=== PATIENT | female | born 1955 | race Caucasian/White ===

== ENCOUNTER 2018-02-05 01:19 | Inpatient (IN) ==
--- NOTE | 2018-02-05 01:40 | Emergency Department Note ---
Disposition Clinical Impression: Transaminitis, Pancreatic mass, Pulmonary embolus, Leukocytosis Disposition: Admitted As Inpatient Condition: Fair Time of Disposition: 04:19 General Adult HPI - General Chief complaint: ED Abdominal Pain Stated complaint: LISETTE/LLQ pain Time Seen by Provider: 02/05/18 01:28 Source: patient Mode of arrival: ambulatory Limitations: no limitations Nursing Notes Reviewed: Yes Vital Signs Reviewed: Yes - History of Present Illness HPI Narrative: Patient is a 62-year-old female that presents the emergency department with left flank pain. Patient states that this back pain began today. Patient states that it radiates around into her left abdomen and up into her left shoulder. Patient states that she has never had anything like this before. Patient denies any injuries or falls. Patient states that she has a difficult time getting comfortable and is unable to lay down due to having significant pain. Patient denies any painful urination or blood in her urine. Patient denies any fevers or chills. Patient does state that she has been somewhat nauseated due to the pain. Patient denies any history of kidney stones. Pain Scale: 8 - Related Data Home Medications Medication Instructions Recorded Confirmed Lisinopril 05/09/17 Omeprazole 05/09/17 amLODIPine 05/09/17 Allergies Allergy/AdvReac Type Severity Reaction Status Date / Time Penicillins Allergy Rash Verified 05/09/17 10:10 Sulfa (Sulfonamide Allergy Rash Verified 05/09/17 10:10 Antibiotics) All systems ED: reviewed and negative except as stated. Constitutional: Denies: fever Cardiovascular: Denies: chest pain Respiratory: Reports: dyspnea Gastrointestinal: Reports: nausea. Denies: abdominal pain, vomiting, diarrhea Genitourinary: Denies: urgency, dysuria, frequency, hematuria Musculoskeletal: Reports: back pain Past Medical History - Past Medical History Medical history: Reports: hypertension - Social History Smoking Status: Never smoker Smokeless Tobacco Status: No Alcohol use: Reports: occasionally Physical Exam - General Limitations: no limitations General appearance: alert, in no apparent distress - Head Head exam: atraumatic, normocephalic - Eye Eye exam: Present: normal appearance, EOMI - Neck Neck exam: Present: normal inspection, full ROM, trachea midline - Respiratory Respiratory exam: Present: normal lung sounds bilaterally. Absent: respiratory distress, wheezes - Cardiovascular Cardiovascular exam: Present: regular rate, normal rhythm, normal heart sounds, +S1, +S2 - Abdominal Exam Abdominal exam: Present: soft, Non-Tender, normal bowel sounds - Back Exam Back exam: Present: normal inspection, full ROM, CVA tenderness (L). Absent: CVA tenderness (R) - Neurological Exam Neurological exam: Present: alert, oriented X3 - Psychiatric Psychiatric exam: Present: normal affect, normal mood - Skin Skin exam: Present: warm, dry, intact Course Vital Signs Temperature 98.1 F 02/05/18 01:24 Pulse Rate 115 02/05/18 01:24 Respiratory Rate 20 02/05/18 01:24 Blood Pressure 163/98 02/05/18 01:24 O2 Sat by Pulse Oximetry 98 02/05/18 01:24 Temperature 98.1 F 02/05/18 01:51 Pulse Rate 115 02/05/18 01:51 Respiratory Rate 20 02/05/18 01:51 Blood Pressure 163/98 02/05/18 01:51 O2 Sat by Pulse Oximetry 98 02/05/18 01:51 Oxygen Delivery Oxygen Delivery Room Air Medical Decision Making - MDM Narrative Medical decision making narrative: Due the patient presenting to the emergency department with left flank pain that radiates into her abdomen and the feeling of not being able to get comfortable there is concern for possible objective uropathy. We will obtain a urinalysis and a CT scan of the abdomen and pelvis to evaluate for possible kidney stone. Patient has denied any pain medications at this time. Patient's CT scan of the abdomen and pelvis was concerning for pancreatic cancer with metastasis. Due to the patient having likely malignancy and being tachycardic and reporting intermittent shortness of breath and the shortness of breath being somewhat pleuritic we will perform a CTA of the chest. We will also obtain basic laboratory testing at this time. Patient does have mildly elevated white count of 13.0. Patient does have a transaminitis with an elevated AST, ALT and alkaline phosphatase. Patient was found to have bilateral PEs on CTA of the chest. Patient will need anticoagulation and admitted to the hospital for further evaluation and management. Patient was informed of the findings of likely pancreatic cancer with metastasis and the fact that there were bilateral pulmonary embolus present patient was in agreement with being anticoagulated and admitted to the hospital for further evaluation and management. I called and sp satnam the admitting hospitalist and he is accepted the patient to their service. Patient be admitted to the hospital at this time for further evaluation and management. - Medical Records Medical records reviewed: Yes I reviewed the patient's medical records. - Lab Data Lab results reviewed: Yes I reviewed the patient's lab results. Result diagrams: 02/05/18 02:25 02/05/18 02:25 Lab Results 02/05/18 02/05/18 02/05/18 Range/Units 01:57 02:25 02:25 WBC 13.0 H (4.3-11.1) K/mcL RBC 4.53 (3.82-4.97) M/mcL Hgb 13.8 (11.5-15.4) g/dL Hct 41.0 (35.3-44.9) % MCV 90.5 (83.0-100.0) fL MCH 30.5 (28.0-33.3) pg MCHC 33.7 (31.6-35.5) g/dL RDW 12.8 (11.5-14.5) % Plt Count 267 (140-400) K/mcL MPV 8.8 L (9.4-12.4) fL Immature Gran % 0.4 (0-4) % Seg Neutrophils % 78.9 % Lymphocytes % 11.0 % Monocytes % 8.6 % Eosinophils % 0.8 % Basophils % 0.3 % Neutrophils # 10.3 H (1.6-8.9) K/mcL Lymphocytes # 1.4 (0.6-4.6) K/mcL Monocytes # 1.1 (0.0-1.3) K/mcL Eosinophils # 0.1 (0.0-0.6) K/mcL Basophils # 0.0 (0.0-0.2) K/mcL Sodium 134 L (136-145) mEq/L Potassium 3.8 (3.5-5.1) mEq/L Chloride 97 L (98-107) mEq/L Carbon Dioxide 26 (23-29) mEq/L BUN 15 (8-23) mg/dL Creatinine 0.78 (0.60-1.20) mg/dL Est GFR ( Amer) > 60 (> 60) Est GFR (Non-Af Amer) > 60 (> 60) BUN/Creatinine Ratio 19 (6-26) Glucose 123 H (70-105) mg/dL Calculated Osmolality 280 (280-300) Calcium 9.2 (8.6-10.3) mg/dL Total Bilirubin 1.0 (0.3-1.0) mg/dL Direct Bilirubin 0.2 (0.0-0.2) mg/dL Indirect Bilirubin 0.8 (0.0-1.2) mg/dL AST 68 H (13-39) Units/L ALT 83 H (7-52) Units/L Alkaline Phosphatase 249 H (34-104) Units/L Serum Total Protein 6.9 (6.4-8.9) g/dL Albumin 3.8 (3.5-5.7) g/dL Globulin 3.1 (2.4-3.5) g/dL Albumin/Globulin Ratio 1.2 (1.1-2.2) Lipase 12 (11-82) Units/L Urine Color Yellow (Yellow) Urine Clarity Cloudy A (Clear) Urine pH 7.0 (5.0-8.0) pH Units Ur Specific [place] < 1.005 L (1.010-1.025) Urine Protein Negative (Neg-Trace) mg/dL Urine Glucose (UA) Normal (Normal) mg/dL Urine Ketones Trace H (Negative) mg/dL Urine Blood Moderate H (Negative) Urine Nitrite Negative (Negative) Urine Bilirubin Negative (Negative) Urine Urobilinogen Normal (Normal) mg/dL Ur Leukocyte Esterase Large H (Negative) Urine Microscopic RBC 5-15 H (0-3) per hpf Urine Microscopic WBC 50-100 H (0-3) per hpf Ur Squamous Epith Cells Many H (None-Few) per lpf Urine Bacteria Few (None-Few) per hpf Hyaline Casts Few (None-Few) per lpf Ur Culture Indicated? NO. A (NO) - Radiology Data Radiology results reviewed: Yes I reviewed the patient's radiology results. Abdomen/Pelvis CT 02/05/18 01:35 IMPRESSION: 1. Findings are most consistent with a pancreatic tumor metastatic to the liver. Dedicated pancreatic protocol CT scan is recommended for further evaluation. This could be performed as an outpatient. 2. Tiny nonobstructing right renal calculus with no obstructive uropathy. 3. Cholelithiasis without scan evidence for acute cholecystitis. 4. Diverticulosis without scan evidence for diverticulitis. D/ / Julián Dodge MD / Julián Dodge MD Interpreting Provider: Julián Dodge MD Chest CTA 02/05/18 02:21 IMPRESSION: 1. Findings compatible with bilateral pulmonary embolism. 2. Probable partial atelectasis in the left lower lobe. Otherwise lungs are clear 3. Liver lesions suspicious for metastatic disease 4. Cholelithiasis Findings were discussed with Dr Frey at 3:54 am on 02/05/2018. D/ / Jaspreet Burciaga MD / Jaspreet Burciaga MD Interpreting Provider: Jaspreet Burciaga MD - EKG Data EKG #1 EKG attestation: Yes I reviewed and interpreted this EKG. EKG results narrative: EKG shows a sinus rhythm and rate of 97 beats from it, ME interval 135, QRS duration 92, QTC of 473. There are mild depressions in the inferior lateral leads. This is compared to previous EKG on 09/03/14. These depressions were present on previous EKG as well. No evidence of STEMI on today's EKG. Critical Care Time Critical Care Time: Yes Total Critical Care Time: 35 Attestation: Acute pulmonary embolism with tachycardia and tachypnea. Attestation Statement - Attestation Attestation: Dr Santos note: Pt seen in conjunction w/ Resident Dr Frey. Please see his charting for complete documentation. I spent face to face time w/ the pt and agree w/ the pt's treatment and disposition; CT scan of the abdomen and chest reviewed. Sharlene leyva has baseline tachycardia and progressive exertional dyspnea the past few days. Presented today for left flank pleuritic pain. Blood work is stable. CT scan shows pulmonary embolism and pancreatic mass with likely metastasis to the liver. Will be admitted for treatment of a pulmonary embolism and further evaluation for her likely cancer.
[2018-02-05 02:05] LABS: Bilirubin,Urine Negative (Negative); Blood,Urine Moderate (Negative); Clarity,Urine Cloudy (Clear); Color,Urine Yellow (Yellow); Glucose,Urine (UA) Normal (Normal); Ketones,Urine Trace mg/dL (Negative); Leukocyte Esterase,Urine Large (Negative); Nitrite,Urine Negative (Negative); Protein,Urine Negative (Neg-Trace); Specific Gravity,Urine < 1.005 (1.010-1.025); Urobilinogen,Urine Normal (Normal)
[2018-02-05 02:07] LABS: Bacteria,Urine Few per hpf (None-Few); Hyaline Casts,Urine Few per lpf (None-Few); Squamous Epithelial Cell,Urine Many per lpf (None-Few); WBC,Urine 50-100 per hpf (0-3)
[2018-02-05] MEDS ORDERED: Isovue-370 500 ML INFUS..BTL IV ONE (02:21)
[2018-02-05 02:35] LABS: Basophils % 0.3 %; Eosinophils # 0.1 K/mcL (0.0-0.6); Eosinophils % 0.8 %; Hemoglobin 13.8 g/dL (11.5-15.4); Immature Granulocytes % 0.4 % (0-4); Lymphocytes # 1.4 K/mcL (0.6-4.6); Mean Corpuscular HGB Conc 33.7 g/dL (31.6-35.5); Mean Corpuscular Hemoglobin 30.5 pg (28.0-33.3); Mean Corpuscular Volume 90.5 fL (83.0-100.0); Mean Platelet Volume 8.8 fL (9.4-12.4); Monocytes # 1.1 K/mcL (0.0-1.3); Monocytes % 8.6 %; Neutrophils # 10.3 K/mcL (1.6-8.9); Platelet Count 267 K/mcL (140-400); Red Blood Count 4.53 M/mcL (3.82-4.97); Red Cell Distribution Width 12.8 % (11.5-14.5); Segmented Neutrophils % 78.9 %
[2018-02-05 02:58] LABS: Alanine Aminotransferase 83 Units/L (7-52); Albumin 3.8 g/dL (3.5-5.7); Albumin/Globulin Ratio 1.2 (1.1-2.2); Alkaline Phosphatase 249 Units/L (34-104); Aspartate Amino Transferase 68 Units/L (13-39); BUN/Creatinine Ratio 19 (6-26); Bilirubin,Direct 0.2 mg/dL (0.0-0.2); Bilirubin,Indirect 0.8 mg/dL (0.0-1.2); Blood Urea Nitrogen 15 mg/dL (8-23); Calcium 9.2 mg/dL (8.6-10.3); Carbon Dioxide 26 mEq/L (23-29); Chloride 97 mEq/L (98-107); Globulin 3.1 g/dL (2.4-3.5); Glucose 123 mg/dL (70-105); Lipase 12 Units/L (11-82); Osmolality,Calculated 280 (280-300); Potassium 3.8 mEq/L (3.5-5.1); Sodium 134 mEq/L (136-145); Total Protein 6.9 g/dL (6.4-8.9); eGFR For Non-African Americans > 60 (> 60)
[2018-02-05] MEDS ORDERED: *HR* Enoxaparin 100 MG/ML SYRINGE SQ STA (04:16)
[2018-02-05] MEDS ORDERED: Naloxone 0.4 MG/ML INJ IVP PRN (08:31)
--- NOTE | 2018-02-05 08:33 | Internal Med History&Physical ---
Date of Encounter: 02/05/18 Time of Encounter: 07:00 Internal Medicine - H&P: HPI Chief complaint: back Pain Admitted From: Home Plans for Post Hospital Care: Home History of present illness: Ms. Long is a 62 year old female with history of hypertension presented to the emergency department with bilateral flank pain. As per patient her pains began suddenly on the day of admission and has progressively worsened. She reports that her pain involves the bilateral flanks and moves up her back and around her chest up to the left shoulder and is stabbing in nature and 5-8 out of 10 in severity. She reports that deep breathing aggravates the pain and laying still and breathing shallow alleviates the pain. She has never had any pain like this before, denies any chest trauma, back trauma or recent falls. She denies any cardiac or lung history, denies any history of blood clots or hematological disorders. In addition to above she also complains of dysuria and frequency and has started to notice blood in her urine for the past day. She denies fever, chills, palpitations, chest pain, nausea, vomiting, diarrhea, syncope, loss of consciousness, recent weight loss, leg edema or calf tenderness. While in the ED CT abdomen and pelvis was performed which was consistent with pancreatic tumor with metastasis to the liver. CT angiogram of the chest was also performed which showed bilateral pulmonary embolus she was given 1 dose of therapeutic Lovenox and was endorsed for admission for further management of abo ve. Past Med Surg Social Fam HX - Past Medical History Medical history: hypertension Psychiatric history: no psych history - Past Surgical History Additional surgical history: tubes tied - Social History Smoking Status: Never smoker Smokeless Tobacco Status: No Alcohol use: occasionally Drug use: none - Family History Father Living Status: Internal Medicine - H&P: Meds Allergy/AdvReac Type Severity Reaction Status Date / Time Penicillins Allergy Rash Verified 02/05/18 08:35 Sulfa (Sulfonamide Allergy Rash Verified 02/05/18 08:35 Antibiotics) All Systems PM: review of systems was performed and is negative for pertinent findings except as documented above in the HPI. - Constitutional Vitals: Temp Pulse Resp BP Pulse Ox 97.4 F L 98 14 148/58 95 02/05/18 06:10 02/05/18 06:10 02/05/18 06:10 02/05/18 06:10 02/05/18 06:10 Exam: General: Patient is alert, oriented, no acute distress, obese Head: atraumatic, normocephalic, Eye: normal appearance, PERRL, no scleral icterus, no conjunctival injection ENT: mucous membranes moist, normal external ear exam Neck: normal inspection, trachea midline, full ROM, no carotid bruits Chest: normal inspection, symmetric chest rise Respiratory: Good respiratory effort. Distant breath sounds secondary to body habitus Bilateral breath sounds are clear without wheezing, crackles, or rhonchi. Cardiovascular: Regular rate and rhythm. s1 and s2 No clicks, rubs, gallops, or murmors. Abdomen: Bowel sounds present normoactive x-4 quadrants. Abdomen is soft, nondistended. no Epigastric tenderness. No guarding or rebound. No organomegaly noted, obese musculoskeletal: Spontaneously moving all extremities. no edema, no calf tenderness Skin: warm, dry, intact. Neuro: Alert and oriented x4. Sensation light touch intact. Cranial nerves 2- 12 is intact. Not aphasic, rapid hand movements intact, [id number] intact, Psych: Patient's affect is normal Internal Med - H&P Results - Labs CBC & Chem 7: 02/05/18 02:25 02/05/18 02:25 Labs: Short CBC 02/05/18 Range/Units 02:25 WBC 13.0 H (4.3-11.1) K/mcL Hgb 13.8 (11.5-15.4) g/dL Hct 41.0 (35.3-44.9) % Plt Count 267 (140-400) K/mcL Neutrophils # 10.3 H (1.6-8.9) K/mcL BMP 02/05/18 02:25 Sodium 134 L Potassium 3.8 Chloride 97 L Carbon Dioxide 26 BUN 15 Creatinine 0.78 Glucose 123 H Calcium 9.2 Liver Function 02/05/18 Range/Units 02:25 Total Bilirubin 1.0 (0.3-1.0) mg/dL Direct Bilirubin 0.2 (0.0-0.2) mg/dL AST 68 H (13-39) Units/L ALT 83 H (7-52) Units/L Alkaline Phosphatase 249 H (34-104) Units/L Albumin 3.8 (3.5-5.7) g/dL Urine 02/05/18 Range/Units 01:57 Urine Color Yellow (Yellow) Urine Clarity Cloudy A (Clear) Urine pH 7.0 (5.0-8.0) pH Units Ur Specific [place] < 1.005 L (1.010-1.025) Urine Protein Negative (Neg-Trace) mg/dL Urine Glucose (UA) Normal (Normal) mg/dL - Impressions ITS Impressions Abdomen/Pelvis CT 02/05/18 01:35 IMPRESSION: 1. Findings are most consistent with a pancreatic tumor metastatic to the liver. Dedicated pancreatic protocol CT scan is recommended for further evaluation. This could be performed as an outpatient. 2. Tiny nonobstructing right renal calculus with no obstructive uropathy. 3. Cholelithiasis without scan evidence for acute cholecystitis. 4. Diverticulosis without scan evidence for diverticulitis. D/ / Julián Dodge MD / Julián Dodge MD Interpreting Provider: Julián Dodge MD Chest CTA 02/05/18 02:21 IMPRESSION: 1. Findings compatible with bilateral pulmonary embolism. 2. Probable partial atelectasis in the left lower lobe. Otherwise lungs are clear 3. Liver lesions suspicious for metastatic disease 4. Cholelithiasis Findings were discussed with Dr Frey at 3:54 am on 02/05/2018. D/ / Jaspreet Burciaga MD / Jaspreet Burciaga MD Interpreting Provider: Jaspreet Burciaga MD - Assessment and plan (1) Bilateral pulmonary embolism Current Visit: Yes Status: Acute Assessment and plan: Troponin, BNP stat Admission EKG stat cardiac monitoring continuous pulse ox Echocardiogram Was started on therapeutic Lovenox at 4 AM will continue Oxygen via nasal cannula to keep saturation above 92% Consider Pulmonology consult toradol for pain Q6H IMPRESSION: 1. Findings compatible with bilateral pulmonary embolism. 2. Probable partial atelectasis in the left lower lobe. Otherwise lungs are clear 3. Liver lesions suspicious for metastatic disease 4. Cholelithiasis (2) Pancreatic mass Current Visit: Yes Status: Acute Assessment and plan: Newly diagnosed on CAT scan on 02/05 GI consulted Oncology consulted CEA and CA-19-[address] A/P IMPRESSION: 1. Findings are most consistent with a pancreatic tumor metastatic to the liver. Dedicated pancreatic protocol CT scan is recommended for further evaluation. This could be performed as an outpatient. 2. Tiny nonobstructing right renal calculus with no obstructive uropathy. 3. Cholelithiasis without scan evidence for acute cholecystitis. 4. Diverticulosis without scan evidence for diverticulitis. (3) Liver metastasis Current Visit: Yes Status: Acute Assessment and plan: Most likely secondary to above Management as per above (4) Transaminitis Current Visit: Yes Status: Acute Assessment and plan: Most likely secondary to metastasis Hepatitis panel, tylenol level We will continue to monitor liver enzymes Rest of the management as above Avoid hepatotoxic medications (5) UTI (urinary tract infection) Current Visit: Yes Status: Acute Assessment and plan: Started on ceftriaxone Follow urine cultures and de-escalate as per the cultures (6) Obesity (BMI 30.0-34.9) Current Visit: Yes Status: Acute Assessment and plan: BMI 33.5 lipid panel in AM Consider nutrition consult (7) DVT prophylaxis Current Visit: Yes Status: Acute Assessment and plan: On therapeutic Lovenox - Time Spent With Patient Total time spent is greater than 50% in coordination of care (as documented) at patient's floor/unit and/or counseling patient:
[2018-02-05 09:26] LABS: INR 1.1; Prothrombin Time 12.4 Seconds (9.4-12.1)
[2018-02-05 09:29] LABS: Activated Partial Thrombo Time 38.9 Seconds (26.0-36.0)
[2018-02-05 10:03] LABS: Hepatitis A Antibody IgM Nonreactive (Nonreactive); Hepatitis B Core IgM Nonreactive (Nonreactive); Hepatitis B Surface Antibody 0.45 mIU/mL; Hepatitis B Surface Antigen Nonreactive (Nonreactive); Hepatitis C Virus Antibody Nonreactive (Nonreactive)
[2018-02-05] MEDS: cefTRIAXone 2,000 MG in 0.9 % Sodium Chloride Mini Bag 100 ML IVPB SCH (10:03)
[2018-02-05] MEDS: 0.9 % Sodium Chloride 1,000 ML IVC SCH ×2 (10:03→20:45)
[2018-02-05 10:11] LABS: Acetaminophen < 10 mcg/mL (10-20); Cholesterol 247 mg/dL (< 200); HDL Cholesterol 83 mg/dL (40-59); LDL Cholesterol,Calculated 150 mg/dL (0-99); Magnesium 1.6 mg/dL (1.6-2.6); Phosphorous 3.4 mg/dL (2.7-4.5); Triglycerides 68 mg/dL (< 150); Troponin I < 0.03 ng/mL (< 0.04)
--- NOTE | 2018-02-05 10:36 | Gastroenterology Consult Note ---
<Richard Baird - Last Filed: 02/05/18 10:33> Date of Encounter: 02/05/18 Time of Encounter: 09:40 - Assessment and plan (1) Pancreatic mass Current Visit: Yes Status: Acute Assessment and plan: CT A/P showed a pancreatic tail mass measuring 2.7 x 3.4 cm with liver mass measuring 3.1 x 3.8 cm suspicious for metastasis. TB 1, AST 68, ALT 83, alkaline phosphatase 249. CEA 179.1, CA 19-9 pending. Oncology has been consulted. Plan for EUS and ERCP tomorrow. Keep patient NPO at midnight. (2) Liver mass Current Visit: Yes Status: Acute Assessment and plan: Suspicious for metastasis. See above. (3) Pulmonary embolus Current Visit: Yes Status: Acute Assessment and plan: CTA showed bilateral PE and liver lesions suspicious of metastasis. Patient receiving Lovenox. Consider IVC filter placement. Qualifiers: Pulmonary embolism type: other Chronicity: acute Acute cor pulmonale presence: without acute cor pulmonale Qualified Code(s): I26.99 - Other pulmonary embolism without acute cor pulmonale - Time Spent With Patient Total time spent is greater than 50% in coordination of care (as documented) at patient's floor/unit and/or counseling patient: GI History of Present Illness - Data of Consult Patient: new to practice Consult date: 02/05/18 Requesting Physician: Al Hampton MD - Consult Narrative Reason for consult: Pancreatic mass with mets to liver History of present illness: Ms. Long is a 62 year old female with PMHx of HTN who presented to the ED with complaints of bilateral flank pain. Patient states she began "feeling bad" on Thursday and symptoms worsened over the course of the week. Yesterday she began expeiencing bilateral flank pain and deep breathing aggrevated the pain. CTA showed bilateral PE and liver lesions suspicious of metastasis. CT A/P showed a pancreatic tail mass measuring 2.7 x 3.4 cm with liver mass measuring 3.1 x 3.8 cm suspicious for metastasis. She was started on Lovenox for her PEs. We were consult to evaluate the pancreatic and liver mass. TB 1, AST 68, ALT 83, alkaline phosphatase 249. Procedures: None NSAIDs: None Anticoagulation: None Past Med Surg Social Fam HX - Past Medical History Medical history: hypertension Psychiatric history: no psych history - Past Surgical History Additional surgical history: tubes tied - Social History Smoking Status: Never smoker Smokeless Tobacco Status: No Alcohol use: occasionally Drug use: none - Family History Father Living Status: - Gastrointestinal Gastrointestinal: Present: as per HPI - Constitutional Constitutional: as per HPI - EENT Eyes: as per HPI Ears: Present: as per HPI Nose, mouth and throat: Present: as per HPI - Cardiovascular Cardiovascular ROS: Present: as per HPI - Respiratory Respiratory IM: Present: as per HPI - Genitourinary Genitourinary: Absent: change in color, Urinary frequency - Neurological ROS Neurological GI: Present: as per HPI - Hematologic/Lymphatic Hematologic/Lymphatic pediatric: Present: as per HPI - Musculoskeletal Musculoskeletal ROS GI: Present: as per HPI - Integumentary Integumentary GI: Present: as per HPI - Psychiatric ROS Psychiatric GI: Present: as per HPI - Endocrine Endocrine IM: Present: as per HPI - Constitutional Vitals: Temp Pulse Resp BP Pulse Ox 97.4 F L 98 14 148/58 95 02/05/18 06:10 02/05/18 06:10 02/05/18 06:10 02/05/18 06:10 02/05/18 06:10 General appearance: Present: cooperative, A&O X 3, no acute distress, answers questions appropriately - Head Head exam: Present: atraumatic, normocephalic - Eye Eye exam: Present: normal appearance, sclera anicteric - ENT ENT exam: Present: mucous membranes moist - Neck Neck exam general surgery: Present: normal inspection, trachea midline - Respiratory Respiratory exam: Present: CTAB. Absent: rales, rhonchi, wheezes - Cardiovascular Cardiovascular exam: Present: RRR, +S1, +S2 - GI/Abdominal GI/Abdominal exam: Present: soft, no peritoneal signs. Absent: distended, firm, guarding, tenderness - Rectal Rectal exam: Present: deferred - Extremities Exam Extremities exam: Present: warm - Neurological Exam Neurological exam: Present: no focal deficits - Psychiatric Psychiatric exam: Present: normal affect, normal mood - Skin Skin exam: Present: dry, intact, normal color, warm Results - Labs CBC & Chem 7: 02/05/18 02:25 02/05/18 02:25 Labs: Last Result Calcium 9.2 mg/dL (8.6-10.3) 02/05/18 02:25 Troponin I < 0.03 ng/mL (< 0.04) 02/05/18 08:41 Triglycerides 68 mg/dL (< 150) 11 08:41 Entire Visit Hgb 13.8 g/dL (11.5-15.4) 02/05/18 02:25 Hct 41.0 % (35.3-44.9) 02/05/18 02:25 PT 12.4 Seconds (9.4-12.1) H 02/05/18 08:41 Total Bilirubin 1.0 mg/dL (0.3-1.0) 02/05/18 02:25 AST 68 Units/L (13-39) H 02/05/18 02:25 ALT 83 Units/L (7-52) H 02/05/18 02:25 Lipase 12 Units/L (11-82) 02/05/18 02:25 Carcinoembryonic Ag 179.1 ng/mL (Less than 5.0) H 02/05/18 08:49 Acetaminophen < 10 mcg/mL (10-20) L 02/05/18 08:41 - ABG ABG results: PT/INR, D-dimer PT 12.4 Seconds (9.4-12.1) H 02/05/18 08:41 - Impressions Impressions Abdomen/Pelvis CT 02/05/18 01:35 IMPRESSION: 1. Findings are most consistent with a pancreatic tumor metastatic to the liver. Dedicated pancreatic protocol CT scan is recommended for further evaluation. This could be performed as an outpatient. 2. Tiny nonobstructing right renal calculus with no obstructive uropathy. 3. Cholelithiasis without scan evidence for acute cholecystitis. 4. Diverticulosis without scan evidence for diverticulitis. D/ / Julián Dodge MD / Julián Dodge MD Interpreting Provider: Julián Dodge MD Chest CTA 02/05/18 02:21 IMPRESSION: 1. Findings compatible with bilateral pulmonary embolism. 2. Probable partial atelectasis in the left lower lobe. Otherwise lungs are clear 3. Liver lesions suspicious for metastatic disease 4. Cholelithiasis Findings were discussed with Dr Frey at 3:54 am on 02/05/2018. D/ / Jaspreet Burciaga MD / Jaspreet Burciaga MD Interpreting Provider: Jaspreet Burciaga MD Consult Discharge Plan - Plan Referrals: NONE,PCP [Primary Care Provider] - <KirstenSadia - Last Filed: 02/05/18 16:08> Date of Encounter: 02/05/18 Time of Encounter: 15:00 - Time Spent With Patient Total time spent is greater than 50% in coordination of care (as documented) at patient's floor/unit and/or counseling patient: GI History of Present Illness - Data of Consult Requesting Physician: Al Hampton MD - Consult Narrative History of present illness: Ms. Long is a 62 year old female - Constitutional Vitals: Temp Pulse Resp BP Pulse Ox 98.2 F 101 19 160/90 93 02/05/18 11:40 02/05/18 11:40 02/05/18 11:40 02/05/18 11:40 02/05/18 11:40 Results - Labs CBC & Chem 7: 02/05/18 02:25 02/05/18 02:25 Labs: Last Result Calcium 9.2 mg/dL (8.6-10.3) 02/05/18 02:25 Troponin I < 0.03 ng/mL (< 0.04) 02/05/18 08:41 Triglycerides 68 mg/dL (< 150) 02/05/18 08:41 Entire Visit Hgb 13.8 g/dL (11.5-15.4) 02/05/18 02:25 Hct 41.0 % (35.3-44.9) 02/05/18 02:25 PT 12.4 Seconds (9.4-12.1) H 02/05/18 08:41 Total Bilirubin 1.0 mg/dL (0.3-1.0) 02/05/18 02:25 AST 68 Units/L (13-39) H 02/05/18 02:25 ALT 83 Units/L (7-52) H 02/05/18 02:25 Lipase 12 Units/L (11-82) 02/05/18 02:25 Carcinoembryonic Ag 179.1 ng/mL (Less than 5.0) H 02/05/18 08:49 Acetaminophen < 10 mcg/mL (10-20) L 02/05/18 08:41 - ABG ABG results: PT/INR, D-dimer PT 12.4 Seconds (9.4-12.1) H 02/05/18 08:41 - Impressions Impressions Abdomen/Pelvis CT 02/05/18 01:35 IMPRESSION: 1. Findings are most consistent with a pancreatic tumor metastatic to the liver. Dedicated pancreatic protocol CT scan is recommended for further evaluation. This could be performed as an outpatient. 2. Tiny nonobstructing right renal calculus with no obstructive uropathy. 3. Cholelithiasis without scan evidence for acute cholecystitis. 4. Diverticulosis without scan evidence for diverticulitis. D/ / Julián Dodge MD / Julián Dodge MD Interpreting Provider: Julián Dodge MD Chest CTA 02/05/18 02:21 IMPRESSION: 1. Findings compatible with bilateral pulmonary embolism. 2. Probable partial atelectasis in the left lower lobe. Otherwise lungs are clear 3. Liver lesions suspicious for metastatic disease 4. Cholelithiasis Findings were discussed with Dr Frey at 3:54 am on 02/05/2018. D/ / Jaspreet Burciaga MD / Jaspreet Burciaga MD Interpreting Provider: Jaspreet Burciaga MD - Attending Attestation I have personally performed a face to face evaluation on this patient. I have reviewed and agree with the care plan. History and Exam by me shows: Pt seen. Complaininf of left side pleuretic CP. O/E AAO . A: Pt with Pancretaic mass with poss liver mets. #2: PE Rec: Pt on Lovenox. Biopsy of pancreatic mass and liver lesion after 1 weeks as out pt
--- NOTE | 2018-02-05 14:24 | Oncology Inp Consult Note ---
<ErwinAlbertina L - Last Filed: 02/06/18 07:51> Date of Encounter: 02/05/18 Time of Encounter: 14:00 Assessment and Plan (1) Pancreatic mass Status: Acute Assessment and plan: CEA is 179 CA-19-9 is pending Ordered Chromogranin A (marker for neuroendocrine carcinoma) CT findings concerning for metastatic pancreatic malignancy with metastasis to liver Differentials may include pancreatic adenocarcinoma versus neuroendocrine carcinoma She is planning to follow up with GI for EUS/ERCP with FNA, this is going to be done as an outpatient following one week of anticoagulation treatment for acute bilateral PE Further treatment options to be discussed following final pathology report Patient is in good performance status ECOG 0-treatment options to be discussed following final pathology We will arrange for outpatient follow-up following biopsy with GI (2) Pulmonary embolus Status: Acute Assessment and plan: PE in the setting of suspected active malignancy Bilateral lower extremity Doppler is pending She appears to be asymptomatic from PE, O2 sats are within normal limits on room air Troponin is less than 0.03 Echo pending Hemoglobin is stable, she has no signs symptoms of bleeding and kidney function is normal Recommend continue treatment with Lovenox dosed accordingly at 1 mg/kg twice a day-continue at discharge We will plan to transition to DOAC on outpatient basis following about 4-6 weeks of Lovenox treatment Qualifiers: Pulmonary embolism type: other Chronicity: acute Acute cor pulmonale presence: without acute cor pulmonale Qualified Code(s): I26.99 - Other pulmonary embolism without acute cor pulmonale (3) Transaminitis Status: Acute Assessment and plan: In the setting of suspected pancreatic malignancy Mildly elevated AST/ALTs, alkaline phosphatase is 249 Total and fractionated bilirubin is normal no evidence of pancreatic/bile duct obstruction at this time (4) Pain of metastatic malignancy Status: Acute Assessment and plan: Patient reports pain to bilateral upper abdomen, just below ribcage that radiates to flank area She has toradol PRN ordered-monitor NSAID use with lovenox closely Oxycodone ordered PRN Nausea symptoms are new with hospitalization, she may have zofran PRN I do not think nausea is secondary to issues with motility but can consider reglan if zofran is ineffective Monitor effectiveness of above medications - Data of Consult Requesting Physician: Al Hampton MD Primary Care Provider: PCP NONE - Consult Narrative Reason for consult: Pancreatic mass History of present illness: Ms. Long is a 62 year old female with history of hypertension presented to the emergency department with bilateral flank pain. Flank pain began about one day prior to admission and has progressively worsened. Pain first began to her bilateral upper and mid abdomen which then progressed to radiating into her flanks. Pain is worse with breathing and movement. She is unable to rest or sleep comfortably. She reports nausea with eating which is new upon her admission. She underwent CTA of the chest and CT of the abdomen and pelvis which revealed findings are most consistent with a pancreatic tumor metastatic to the liver as well as bilateral pulmonary embolism. Until just days prior to her admission patients states she felt well. She denies unintended weight loss, fatigue, nausea, vomiting, diarrhea, pain, SOB or chest pain prior to her acute symptom onset. No personal or family history of cancer. Past Med Surg Social Fam HX - Past Medical History Medical history: hypertension Psychiatric history: no psych history - Past Surgical History Additional surgical history: tubes tied - Social History Smoking Status: Never smoker Smokeless Tobacco Status: No Alcohol use: occasionally Drug use: none - Family History Father Living Status: Medications and Allergies RX: Ibuprofen [Motrin] 800 mg PO Q8HR PRN 02/05/18 [History] RX: Lisinopril/Hydrochlorothiazide [Zestoretic 20-25 mg Tablet] 1 tab PO DAILY 02/05/18 [History] RX: Omeprazole [PriLOSEC] 20 mg PO DAILY 02/05/18 [History] RX: amLODIPine [Norvasc] 5 mg PO DAILY 02/05/18 [History] RX: Enoxaparin [Lovenox] 90 mg SQ Q12HR 60 Days #60 syringe 02/06/18 [Rx] RX: Nitrofurantoin (BID) [Macrobid] 100 mg PO BID 5 Days #10 capsule 02/06/18 [Rx] Allergy/AdvReac Type Severity Reaction Status Date / Time Penicillins Allergy Rash Verified 02/05/18 10:56 Sulfa (Sulfonamide Allergy Rash Verified 02/05/18 10:56 Antibiotics) Constitutional: Present: anorexia, fatigue, weight loss. Absent: chills, fever(s), weakness Eyes: Absent: change in vision Nose, mouth and throat: Absent: dysphagia Cardiovascular: Absent: chest pain, palpitations Respiratory: Absent: cough, dyspnea, hemoptysis Gastrointestinal: Present: abdominal pain, nausea. Absent: hematemesis, hematochezia, melena, vomiting Genitourinary: Absent: dysuria Musculoskeletal: Present: muscle weakness Integumentary: Absent: wounds, jaundice Neurological: Absent: focal weakness, frequent falls Hematologic/Lymphatic: Present: as per HPI Oncology - Exam - Constitutional Vitals: Temp Pulse Resp BP Pulse Ox 98.2 F 101 19 160/90 93 02/05/18 11:40 02/05/18 11:40 02/05/18 11:40 02/05/18 11:40 02/05/18 11:40 General appearance: cooperative, no acute distress, no febrile - Head Head exam: Present: atraumatic - ENT ENT exam: Present: mucous membranes moist - Respiratory Respiratory exam: Present: CTAB. Absent: respiratory distress - Cardiovascular Cardiovascular exam: Present: RRR, +S1, +S2 - GI/Abdominal GI/Abdominal exam: Present: normal bowel sounds, soft, tenderness. Absent: guarding, rebound - Extremities Exam Extremities exam: Present: normal inspection. Absent: calf tenderness - Neurological Exam Neurological exam: Present: alert, oriented X3, strengths equal and symetr throughout - Psychiatric Psychiatric exam: Present: normal affect, normal mood - Skin Skin exam: Present: dry, intact, normal color, warm Consult Discharge Plan - Plan Instructions: Enoxaparin (Injection), Nitrofurantoin Combination (By mouth), Pulmonary Embolism (DC), Urinary Tract Infection in Women (DC), Pancreatic Cancer (DC), Pancreatic Cancer, Heavy Mobile Equipment Repairer (GEN) Referrals: NONE,PCP [Primary Care Provider] - Prescriptions: RX: Enoxaparin [Lovenox] 90 mg SQ Q12HR 60 Days #60 syringe RX: Nitrofurantoin (BID) [Macrobid] 100 mg PO BID 5 Days #10 capsule <Dale Teran S - Last Filed: 02/07/18 12:59> Date of Encounter: 02/05/18 - Data of Consult Requesting Physician: Al Hampton MD Primary Care Provider: PCP NONE - Consult Narrative History of present illness: Ms. Long is a 62 year old female Oncology - Exam - Constitutional Vitals: Temp Pulse Resp BP Pulse Ox 98.2 F 101 19 160/90 93 02/05/18 11:40 02/05/18 11:40 02/05/18 11:40 02/05/18 11:40 02/05/18 11:40 Oncology - Results Labs: 02/05/18 02/05/18 02/05/18 08:49 08:49 08:41 WBC RBC Hgb Hct MCV MCH MCHC RDW Plt Count MPV Immature Gran % Seg Neutrophils % Lymphocytes % Monocytes % Eosinophils % Basophils % Neutrophils # Lymphocytes # Monocytes # Eosinophils # Basophils # PT INR APTT Sodium Potassium Chloride Carbon Dioxide BUN Creatinine Est GFR ( Amer) Est GFR (Non-Af Amer) BUN/Creatinine Ratio Glucose Calculated Osmolality Calcium Phosphorus Magnesium Total Bilirubin Direct Bilirubin Indirect Bilirubin AST ALT Alkaline Phosphatase Troponin I B-Natriuretic Peptide 32 Serum Total Protein Albumin Globulin Albumin/Globulin Ratio Triglycerides Cholesterol LDL Cholesterol, Calc VLDL Cholesterol, Calc HDL Cholesterol Cholesterol/HDL Ratio Lipase Carcinoembryonic Ag 179.1 H Urine Color Urine Clarity Urine pH Ur Specific [place] Urine Protein Urine Glucose (UA) Urine Ketones Urine Blood Urine Nitrite Urine Bilirubin Urine Urobilinogen Ur Leukocyte Esterase Urine Microscopic RBC Urine Microscopic WBC Ur Squamous Epith Cells Urine Bacteria Hyaline Casts Ur Culture Indicated? Acetaminophen Hepatitis A IgM Ab Nonreactive Hep Bs Antigen Nonreactive Hep Bs Antibody 0.45 Hep B Core IgM Ab Nonreactive Hepatitis C Ab Screen Nonreactive 02/05/18 02/05/18 02/05/18 08:41 08:41 02:25 WBC RBC Hgb Hct MCV MCH MCHC RDW Plt Count MPV Immature Gran % Seg Neutrophils % Lymphocytes % Monocytes % Eosinophils % Basophils % Neutrophils # Lymphocytes # Monocytes # Eosinophils # Basophils # PT 12.4 H INR 1.1 APTT 38.9 H Sodium 134 L Potassium 3.8 Chloride 97 L Carbon Dioxide 26 BUN 15 Creatinine 0.78 Est GFR ( Amer) > 60 Est GFR (Non-Af Amer) > 60 BUN/Creatinine Ratio 19 Glucose 123 H Calculated Osmolality 280 Calcium 9.2 Phosphorus 3.4 Magnesium 1.6 Total Bilirubin 1.0 Direct Bilirubin 0.2 Indirect Bilirubin 0.8 AST 68 H ALT 83 H Alkaline Phosphatase 249 H Troponin I < 0.03 B-Natriuretic Peptide Serum Total Protein 6.9 Albumin 3.8 Globulin 3.1 Albumin/Globulin Ratio 1.2 Triglycerides 68 Cholesterol 247 H LDL Cholesterol, Calc 150 H VLDL Cholesterol, Calc 14 HDL Cholesterol 83 H Cholesterol/HDL Ratio 3.0 Lipase 12 Carcinoembryonic Ag Urine Color Urine Clarity Urine pH Ur Specific [place] Urine Protein Urine Glucose (UA) Urine Ketones Urine Blood Urine Nitrite Urine Bilirubin Urine Urobilinogen Ur Leukocyte Esterase Urine Microscopic RBC Urine Microscopic WBC Ur Squamous Epith Cells Urine Bacteria Hyaline Casts Ur Culture Indicated? Acetaminophen < 10 L Hepatitis A IgM Ab Hep Bs Antigen Hep Bs Antibody Hep B Core IgM Ab Hepatitis C Ab Screen 02/05/18 02/05/18 02:25 01:57 WBC 13.0 H RBC 4.53 Hgb 13.8 Hct 41.0 MCV 90.5 MCH 30.5 MCHC 33.7 RDW 12.8 Plt Count 267 MPV 8.8 L Immature Gran % 0.4 Seg Neutrophils % 78.9 Lymphocytes % 11.0 Monocytes % 8.6 Eosinophils % 0.8 Basophils % 0.3 Neutrophils # 10.3 H Lymphocytes # 1.4 Monocytes # 1.1 Eosinophils # 0.1 Basophils # 0.0 PT INR APTT Sodium Potassium Chloride Carbon Dioxide BUN Creatinine Est GFR ( Amer) Est GFR (Non-Af Amer) BUN/Creatinine Ratio Glucose Calculated Osmolality Calcium Phosphorus Magnesium Total Bilirubin Direct Bilirubin Indirect Bilirubin AST ALT Alkaline Phosphatase Troponin I B-Natriuretic Peptide Serum Total Protein Albumin Globulin Albumin/Globulin Ratio Triglycerides Cholesterol LDL Cholesterol, Calc VLDL Cholesterol, Calc HDL Cholesterol Cholesterol/HDL Ratio Lipase Carcinoembryonic Ag Urine Color Yellow Urine Clarity Cloudy A Urine pH 7.0 Ur Specific [place] < 1.005 L Urine Protein Negative Urine Glucose (UA) Normal Urine Ketones Trace H Urine Blood Moderate H Urine Nitrite Negative Urine Bilirubin Negative Urine Urobilinogen Normal Ur Leukocyte Esterase Large H Urine Microscopic RBC 5-15 H Urine Microscopic WBC 50-100 H Ur Squamous Epith Cells Many H Urine Bacteria Few Hyaline Casts Few Ur Culture Indicated? NO. A Acetaminophen Hepatitis A IgM Ab Hep Bs Antigen Hep Bs Antibody Hep B Core IgM Ab Hepatitis C Ab Screen - Attending Attestation 1. Admitted with bilateral flank pain. CAT scan showed mass in the tail of the pancreas about 2.5 cm. Also multiple liver lesion concerning for metastasis. Dr. Prakash evaluated her and plan is to do EUS biopsy of the pancreas and possibly liver as an outpatient in a week 2. Incidental bilateral PE by CT angiogram chest. Bilateral venous Doppler ordered and echocardiogram Differential diagnosis at this time include metastatic pancreatic cancer versus neuroendocrine cancer. Final recommendation after biopsy report CEA elevated at 179. CA 19-9 pending AST 83 ALT around 60 alkaline phosphatase 245. Bilirubin normal. Currently no evidence of pancreatic/bile duct obstruction and viral hepatitis panel negative Inpatient Charges Provider: Dr. Anshul Teran Consult - Inpatient: [id number]
[2018-02-05] MEDS ORDERED: Perflutren Lipid Microsphere 1.3 ML in 0.9 % Sodium Chloride 8.7 ML IVP ONE (16:47)
[2018-02-05] MEDS: Ketorolac 15 MG/ML VIAL IVP PRN (17:11)
[2018-02-05] MEDS: amLODIPine 5 MG TABLET PO SCH (18:35)
[2018-02-05] MEDS: *HR* Enoxaparin 100 MG/ML SYRINGE SQ SCH (18:40)
[2018-02-05] MEDS ORDERED: Ondansetron ODT 4 MG TAB.RAPDIS SL PRN (19:02)
[2018-02-05] MEDS ORDERED: *HR* HYDROcodone/Acet 5/325 mg TABLET PO PRN (19:02)
--- NOTE | 2018-02-05 19:58 | Electrocardiograph Report ---
[address] [place] [address] Test Date: 2018-02-05 Pat Name: Marsha Long Department: EXAM1 Room: 2NE29 Gender: F Mat Man: : 1955 Requested By: Zaki Frey Order Number: [id number] Reading MD: Jean Alarcon Measurements Intervals Stanley Rate: 97 P: 57 MN: 135 QRS: 59 QRSD: 92 T: -28 QT: 372 QTc: 473 Interpretive Statements Sinus rhythm Inferior myocardial infarction, age undetermined Nonspecific ST-T changes Electronically Signed On 02-05-2018 19:57:13 EDT by Jean Alacron
[2018-02-06] MEDS: Ketorolac 15 MG/ML VIAL IVP PRN ×2 (01:33→14:57)
[2018-02-06 04:00] LABS: Basophils % 0.3 %; Eosinophils # 0.1 K/mcL (0.0-0.6); Eosinophils % 0.5 %; Hematocrit 36.2 % (35.3-44.9); Hemoglobin 12.1 g/dL (11.5-15.4); Immature Granulocytes % 0.5 % (0-4); Lymphocytes # 1.9 K/mcL (0.6-4.6); Lymphocytes % 16.1 %; Mean Corpuscular HGB Conc 33.4 g/dL (31.6-35.5); Mean Corpuscular Hemoglobin 30.3 pg (28.0-33.3); Mean Corpuscular Volume 90.7 fL (83.0-100.0); Monocytes # 1.2 K/mcL (0.0-1.3); Monocytes % 10.3 %; Neutrophils # 8.6 K/mcL (1.6-8.9); Platelet Count 240 K/mcL (140-400); Red Blood Count 3.99 M/mcL (3.82-4.97); Red Cell Distribution Width 12.6 % (11.5-14.5); Segmented Neutrophils % 72.3 %
[2018-02-06 04:21] LABS: Alanine Aminotransferase 97 Units/L (7-52); Albumin 3.4 g/dL (3.5-5.7); Albumin/Globulin Ratio 1.4 (1.1-2.2); Alkaline Phosphatase 227 Units/L (34-104); Aspartate Amino Transferase 88 Units/L (13-39); BUN/Creatinine Ratio 24 (6-26); Bilirubin,Total 1.1 mg/dL (0.3-1.0); Blood Urea Nitrogen 16 mg/dL (8-23); Calcium 8.4 mg/dL (8.6-10.3); Carbon Dioxide 24 mEq/L (23-29); Chloride 102 mEq/L (98-107); Globulin 2.5 g/dL (2.4-3.5); Glucose 109 mg/dL (70-105); Osmolality,Calculated 282 (280-300); Potassium 3.6 mEq/L (3.5-5.1); Sodium 135 mEq/L (136-145); Total Protein 5.9 g/dL (6.4-8.9); eGFR For Non-African Americans > 60 (> 60)
[2018-02-06] MEDS: *HR* Enoxaparin 100 MG/ML SYRINGE SQ SCH ×2 (06:03→17:57)
[2018-02-06] MEDS ORDERED: *HR* OxyCODONE Immed Rel 5 MG TABLET PO PRN (08:03)
[2018-02-06] MEDS: cefTRIAXone 2,000 MG in 0.9 % Sodium Chloride Mini Bag 100 ML IVPB SCH (09:26)
[2018-02-06] MEDS: amLODIPine 5 MG TABLET PO SCH (09:27)
--- NOTE | 2018-02-06 09:48 | Discharge Summary ---
- NOTES TO OUTPATIENT PROVIDER Notes to Outpatient Provider: Follow with GI in a week. Follow up with Hem&Onc within 1 week of hospital discharge. Orders not resulted at time of discharge: Pending orders 02/05/18 08:31 ECG 12 lead ECG [ECG] Stat 02/05/18 08:38 Culture,Urine [RM] Stat 02/05/18 08:49 Cancer Antigen-GI (CA 19-9) Stat Hepatitis B Core Ab Total Stat 02/06/18 03:32 Chromogranin A AM 0400 Date of Encounter: 02/06/18 Time of Encounter: 09:42 - Discharge Diagnosis (1) Transaminitis Priority: Secondary Status: Acute (2) Pancreatic mass Priority: Primary Status: Acute Assessment and Plan: Possible adenocarcinoma with metastases to the liver. (3) Bilateral pulmonary embolism Priority: Secondary Status: Acute Assessment and Plan: Hypercoagulable possible secondary to pancreatic cancer (4) UTI (urinary tract infection) Priority: Secondary Status: Acute (5) Liver metastasis Priority: Secondary Status: Acute (6) DVT prophylaxis Priority: Secondary Status: Acute (7) Obesity (BMI 30.0-34.9) Priority: Secondary Status: Acute Hospital course: Ms. Long is a 62 year old female history of hypertension presented to the emergency department with bilateral flank pain. As per patient her pains began suddenly on the day of admission and has progressively worsened. She reports that her pain involves the bilateral flanks and moves up her back and around her chest up to the left shoulder and is stabbing in nature and 5-8 out of 10 in severity. As part of the workup a CT abdomen and pelvis was performed which was consistent with pancreatic tumor with metastasis to the liver. CT angiogram of the chest was also performed which showed bilateral pulmonary embolus. Venous Duplex: Bilateral lower extremity venous duplex appears to be positive for and acute DVT in the right castillo. vein and positive for an acute SVT in the right LSV. Negative for DVT and SVT in the left lower extremity. Patient started on full dose anticoagulation. GI consulted recommended ERCP as an outpatient in week. Hem&Onc consulted recommended to continue lovenox 1mgxkg for 4-6 weeks and to follow up with them in the outpatient setting. Patient is hemodynamically stable. Will be discharge home on full dose anticoagulation. Recommended to follow with above mentioned service. - Time Spent with Patient Total time spent providing and/or coordinating discharge services: Greater than 30 minutes (32) - Discharge Medications Prescriptions: Enoxaparin [Lovenox] 90 mg SQ Q12HR 60 Days #60 syringe Nitrofurantoin (BID) [Macrobid] 100 mg PO BID 5 Days #10 capsule Home Medications: Ibuprofen [Motrin] 800 mg PO Q8HR PRN 02/05/18 [History] Lisinopril/Hydrochlorothiazide [Zestoretic 20-25 mg Tablet] 1 tab PO DAILY 02/05/18 [History] Omeprazole [PriLOSEC] 20 mg PO DAILY 02/05/18 [History] amLODIPine [Norvasc] 5 mg PO DAILY 02/05/18 [History] Enoxaparin [Lovenox] 90 mg SQ Q12HR 60 Days #60 syringe 02/06/18 [Rx] Nitrofurantoin (BID) [Macrobid] 100 mg PO BID 5 Days #10 capsule 02/06/18 [Rx] Allergies/Adverse Reactions: Allergy/AdvReac Type Severity Reaction Status Date / Time Penicillins Allergy Rash Verified 02/05/18 10:56 Sulfa (Sulfonamide Allergy Rash Verified 02/05/18 10:56 Antibiotics) Date of admission: 02/05/18 08:31 Primary care physician: PCP NONE Consults: 02/05/18 08:28 Consult to Gastroenterology [CONS] Routine Consulting Provider: Gastroenterology Emily Reason for Consult: pancreatic cancer with mets to liver Call Completed: No 02/05/18 08:29 Consult to Oncology Hematology [CONS] Routine Consulting Provider: Albertina Erwin Reason for Consult: pancreatic cancer with mets Call Completed: No - Constitutional Vitals: Temp Pulse Resp BP Pulse Ox 99.1 F 90 14 145/87 96 02/06/18 06:55 02/06/18 06:55 02/06/18 00:00 02/06/18 06:55 02/06/18 06:55 Exam: General: Alert and oriented x4. In no acute distress Skin: Normal color, no rash, no lesions. HEENT: EOM, pupils equal, round and reactive. Cardiovascular: RRR, Normal S1 & S2, no rubs, murmurs or gallops. . Lungs: Clear breath sounds auscultation bilaterally, no wheezes or crackles. Abdomen: Obese, Soft, non-tender, no rigidity. Extremities: No deformity, no edema or tenderness, no joint swelling or clubbing. Neurological: Normal cognition and motor skills. Rest of the physical exam is non contributory - Patient Status Disposition: Home, Self-Care Condition: Good Functional capacity at discharge: independent ambulation Overall status at discharge: patient is back to baseline - Discharge Instructions Follow Up With: NONE,PCP [Primary Care Provider] - - Diet and Activity Activity: resume usual activities as tolerated Diet: advance to your usual diet
[2018-02-07 06:07] LABS: Basophils % 0.3 %; Eosinophils # 0.1 K/mcL (0.0-0.6); Eosinophils % 0.8 %; Hematocrit 36.3 % (35.3-44.9); Immature Granulocytes % 0.4 % (0-4); Lymphocytes # 1.6 K/mcL (0.6-4.6); Lymphocytes % 15.1 %; Mean Corpuscular HGB Conc 33.1 g/dL (31.6-35.5); Mean Corpuscular Hemoglobin 30.1 pg (28.0-33.3); Mean Platelet Volume 8.9 fL (9.4-12.4); Monocytes % 9.8 %; Neutrophils # 7.7 K/mcL (1.6-8.9); Platelet Count 244 K/mcL (140-400); Red Blood Count 3.99 M/mcL (3.82-4.97); Red Cell Distribution Width 12.6 % (11.5-14.5); Segmented Neutrophils % 73.6 %
[2018-02-07] MEDS: *HR* Enoxaparin 100 MG/ML SYRINGE SQ SCH ×2 (06:19→18:16)
[2018-02-07] MEDS: Ketorolac 15 MG/ML VIAL IVP PRN ×3 (06:26→19:55)
[2018-02-07 06:32] LABS: BUN/Creatinine Ratio 26 (6-26); Blood Urea Nitrogen 15 mg/dL (8-23); Calcium 8.5 mg/dL (8.6-10.3); Carbon Dioxide 25 mEq/L (23-29); Chloride 102 mEq/L (98-107); Glucose 98 mg/dL (70-105); Magnesium 1.8 mg/dL (1.6-2.6); Osmolality,Calculated 281 (280-300); Phosphorous 2.5 mg/dL (2.7-4.5); Potassium 3.8 mEq/L (3.5-5.1); Sodium 135 mEq/L (136-145); eGFR For Non-African Americans > 60 (> 60)
[2018-02-07] MEDS: amLODIPine 5 MG TABLET PO SCH (08:48)
[2018-02-07] MEDS: cefTRIAXone 2,000 MG in 0.9 % Sodium Chloride Mini Bag 100 ML IVPB SCH (08:48)
--- NOTE | 2018-02-07 11:34 | Internal Med Progress Note ---
Hospitalist Progress Note - Encounter Date of Encounter: 02/07/18 Time of Encounter: 11:31 - Subjective Interval History: Patient seen and evaluated at bedside. reports doing well, reported having some back pain earlier today but the patient medication she received has helped. denies chest pain, shortness of breath or abdominal pain. - Exam Vitals: Temp Pulse Resp BP Pulse Ox 98.1 F 84 15 148/95 97 02/07/18 06:25 02/07/18 06:25 02/07/18 06:25 02/07/18 06:25 02/07/18 06:25 Exam: General: Alert and oriented x4. In no acute distress Skin: Normal color, no rash, no lesions. HEENT: EOM, pupils equal, round and reactive. Cardiovascular: RRR, Normal S1 & S2, no rubs, murmurs or gallops. . Lungs: Clear breath sounds auscultation bilaterally, no wheezes or crackles. Abdomen: Obese, Soft, non-tender, no rigidity. NABS in all 4 quadrants Extremities: No edema, no joint swelling or clubbing. Neurological: Normal cognition. CN II-XII intact. Rest of the physical exam is non contributory - Assessment and Plan (1) Bilateral pulmonary embolism Current Visit: Yes Status: Acute Assessment and Plan: Hypercoagulable most likely due to pancreatic CA. Patient on Lovenox full dose 90mg SUBQ BID. As per Hem&Onc patient needs to be on lovenox for at 4-6 weeks. patient self pay, working with social services manager to see how lovenox could be obtain for outpatient continuation of care. (2) Pancreatic mass Current Visit: Yes Status: Acute Assessment and Plan: Possible adenocarcinoma with mets to the liver patient scheduled to follow with GI for ERCP with biopsy within a week Hem&Onc involved. recommended outpatient follow up. (3) Liver metastasis Current Visit: Yes Status: Acute Assessment and Plan: plan of care as above. (4) Transaminitis Current Visit: Yes Status: Acute Assessment and Plan: most likely related to pancreatic mass plan of care as above. (5) UTI (urinary tract infection) Current Visit: Yes Status: Acute Assessment and Plan: being covered empirically with ceftriaxone 1gm/IV daily. (6) Obesity (BMI 30.0-34.9) Current Visit: Yes Status: Acute (7) DVT (deep venous thrombosis) Current Visit: Yes Status: Acute Assessment and Plan: Venous Duple: Bilateral lower extremity venous duplex appears to be positive for and acute DVT in the right castillo. vein and positive for an acute SVT in the right LSV. Negative for DVT and SVT in the left lower extremity. Patient on full dose anticoagulations. DVT Prophylaxis: On full dose anticoagulation due to PE and DVT. - Summary of Assessment and Plan Summary of Assessment and Plan: Potential discharge tomorrow. Working with social services manager to obtain Lovenox supplies. as patient is self paid. - Time Spent with Patient Total time spent is greater than 50% in coordination of care (as documented) at patient's floor/unit and/or counseling patient: 25 - 35 minutes Plan of Care Discussed with: patient (and the nurse.) Internal Medicine: Result - Labs CBC & Chem 7: 02/07/18 05:42 02/07/18 05:42 Labs: Short CBC 02/07/18 Range/Units 05:42 WBC 10.5 (4.3-11.1) K/mcL Hgb 12.0 (11.5-15.4) g/dL Hct 36.3 (35.3-44.9) % Plt Count 244 (140-400) K/mcL Neutrophils # 7.7 (1.6-8.9) K/mcL BMP 02/07/18 05:42 Sodium 135 L Potassium 3.8 Chloride 102 Carbon Dioxide 25 BUN 15 Creatinine 0.57 L Glucose 98 Calcium 8.5 L - ABG Interpretation ABG results: PT/INR, D-dimer PT 12.4 Seconds (9.4-12.1) H 02/05/18 08:41 Consult Discharge Plan - Plan Instructions: Enoxaparin (Injection), Nitrofurantoin Combination (By mouth), Pulmonary Embolism (DC), Urinary Tract Infection in Women (DC), Pancreatic Cancer (DC), Pancreatic Cancer, Biomedical Engineering Director (GEN) Referrals: NONE,PCP [Primary Care Provider] - Prescriptions: Enoxaparin [Lovenox] 90 mg SQ Q12HR 60 Days #60 syringe Nitrofurantoin (BID) [Macrobid] 100 mg PO BID 5 Days #10 capsule (7) DVT (deep venous thrombosis) Qualifiers: DVT location: lower extremity Affected thrombotic vein of extremity: unspecified vein of extremity Chronicity: acute Laterality: right Qualified Code(s): I82.401 - Acute embolism and thrombosis of unspecified deep veins of right lower extremity
[2018-02-07 11:46] LABS: Alanine Aminotransferase 147 Units/L (7-52); Alkaline Phosphatase 223 Units/L (34-104); Aspartate Amino Transferase 115 Units/L (13-39); Bilirubin,Direct 0.4 mg/dL (0.0-0.2); Bilirubin,Indirect 0.5 mg/dL (0.0-1.2); Bilirubin,Total 0.9 mg/dL (0.3-1.0); Total Protein 5.7 g/dL (6.4-8.9)
[2018-02-07 11:49] LABS: Albumin/Globulin Ratio 1.1 (1.1-2.2); Globulin 2.7 g/dL (2.4-3.5)
[2018-02-08] MEDS: Ketorolac 15 MG/ML VIAL IVP PRN (06:14)
[2018-02-08] MEDS: *HR* Enoxaparin 100 MG/ML SYRINGE SQ SCH (06:14)
[2018-02-08] MEDS: cefTRIAXone 2,000 MG in 0.9 % Sodium Chloride Mini Bag 100 ML IVPB SCH (09:13)
[2018-02-08] MEDS: amLODIPine 5 MG TABLET PO SCH (09:13)
--- NOTE | 2018-02-08 11:38 | Event Note ---
Date of Encounter: 02/08/18 Time of Encounter: 11:36 patient seen and evaluated at bedside. she denies shortness of breath but report some discomfort under her left breast. denies abdominal pain, nausea or vomiting Physical Exam: Vitals: Reviewed General: Alert and oriented x4. In no acute distress Skin: Normal color, no rash, no lesions. HEENT: EOM, pupils equal, round and reactive. Cardiovascular: RRR, Normal S1 & S2, no rubs, murmurs or gallops. . Lungs: Clear breath sounds auscultation bilaterally, no wheezes or crackles. Abdomen: Obese, Soft, non-tender, no rigidity. NABS in all 4 quadrants Extremities: No edema, no joint swelling or clubbing. Neurological: Normal cognition. CN II-XII intact. Rest of the physical exam is non contributory Assessment and Plan: 1. Pancreatic mass possible adenocarcinoma with live mets 2. PE 3. DVT of the lower extr b/l 4. Transaminitis 5. Liver metastasis 6. UTI 7. Obesity 8. Obesity. 9. Hypertension Plan: Patient being discharged home A 2 weeks supply of Lovenox has been provided to the patient strongly recommended to follow with Hem&Onc and GI as soon as possible to schedule the Biopsy for more information refer to the discharge summary dictated on 02/06/18.
[2018-02-08] MEDS ORDERED: traMADol 50 MG TABLET PO ONE (12:03)
[2018-02-08 12:43] VITALS: BP 140/88
== END 2018-02-08 14:15 | disposition home or self-care (01) | DRG 435 ==
LOC: EMEROOARM 01:19 → 2NENU 01:19 → SUATTDRO 08:31
PROVIDERS: ADMIT Family Medicine; ATTEND Internal Medicine

== ENCOUNTER 2018-03-20 19:14 | Observation (INO) ==
[2018-03-20] MEDS ORDERED: Isovue-370 500 ML INFUS..BTL IV ONE (19:49)
[2018-03-20] MEDS ORDERED: *HR* Morphine 2 MG/ML SYRINGE IVP ONE (20:04)
[2018-03-20] MEDS ORDERED: Ondansetron ODT 4 MG TAB.RAPDIS SL ONE (20:04)
--- NOTE | 2018-03-20 20:08 | Emergency Department Note ---
Disposition Clinical Impression: Chest pain Qualifiers: Chest pain type: unspecified Qualified Code(s): R07.9 - Chest pain, unspecified Disposition: Still a Patient Referrals: NONE,PCP [Primary Care Provider] - Forms: ED Satisfaction Letter Time of Disposition: 21:19 General Adult HPI - General Chief complaint: ED Shortness of Breath/Dyspnea Stated complaint: LISETTE/vomiting x 1 day Time Seen by Provider: 03/20/18 19:40 Vital Signs Reviewed: Yes - History of Present Illness HPI Narrative: Patient is a 62-year-old female with a history of pancreatic cancer and a previous PE in February 2018 presented to the emergency department with one-day history of right-sided pleuritic chest pain. The pain is sharp, worsened on deep inspiration patient states that it feels exactly like her previous PE that she had on the left. Patient has a history of pancreatic cancer and recently started chemotherapy. Patient was also found to have a DVT last week in the left lower extremity. Patient is on Lovenox at home. On presentation patient was tachycardic at 110, she has shallow breaths to avoid deep inspiration as it causes pain. She has had some associated nausea with this as well. Denies any recent fevers or chills. Pain Scale: 8 - Related Data Home Medications Medication Instructions Recorded Confirmed Ibuprofen [Motrin] 800 mg PO Q8HR PRN 02/05/18 03/02/18 Lisinopril/Hydrochlorothiazide 1 tab PO DAILY 02/05/18 03/02/18 [Zestoretic 20-25 mg Tablet] Omeprazole [PriLOSEC] 20 mg PO DAILY 02/05/18 03/02/18 amLODIPine [Norvasc] 5 mg PO DAILY 02/05/18 03/02/18 Previous Rx's Medication Instructions Recorded Enoxaparin [Lovenox] 80 mg SQ Q12HR #60 syr 03/02/18 Lidocaine/Prilocaine [Emla] 1 appl TP AD #30 gm 03/09/18 Loperamide [Imodium] 2 mg PO AD PRN #30 capsule 03/09/18 Magic Mouthwash 5 ml PO Q4H PRN #240 ml 03/09/18 Ondansetron ODT [Zofran ODT] 4 mg SL Q6HR #20 tab.rapdis 03/09/18 Prochlorperazine Maleate 10 mg PO Q6HR PRN #30 tablet 03/09/18 [Compazine] Fosaprepitant Dimeglumine [Emend] 150 mg IVPB Q2W #12 vial 03/16/18 Potassium Chloride 1 tab PO DAILY #30 tab.er.prt 03/16/18 Allergies Allergy/AdvReac Type Severity Reaction Status Date / Time Penicillins Allergy Rash Verified 03/02/18 10:04 Sulfa (Sulfonamide Allergy Rash Verified 03/02/18 10:04 Antibiotics) All systems ED: reviewed and negative except as stated. Past Medical History - Past Medical History Medical history: Reports: arthritis, cancer, GERD, hypertension Psychiatric history: Reports: no psych history - Social History Smoking Status: Never smoker Smokeless Tobacco Status: No Alcohol use: Reports: none, occasionally Drug use: Reports: none Physical Exam - General Limitations: no limitations General appearance: alert, in no apparent distress - Head Head exam: atraumatic, normocephalic - Eye Eye exam: Present: normal appearance - Neck Neck exam: Present: normal inspection, trachea midline - Chest Chest inspection: Present: normal inspection, symmetric chest wall rise, other (No tenderness to palpation of the chest wall). Absent: tenderness - Respiratory Respiratory exam: Present: normal lung sounds bilaterally. Absent: wheezes - Cardiovascular Cardiovascular exam: Present: tachycardia, +S1, +S2 - Abdominal Exam Abdominal exam: Present: soft, Non-Tender. Absent: guarding, rigidity - Extremities Exam Extremities exam: Present: other (Lower extremities are equal in size bilaterally, trace pedal edema.) - Neurological Exam Neurological exam: Present: alert, oriented X3 - Psychiatric Psychiatric exam: Present: normal affect, normal mood - Skin Skin exam: Present: warm, dry, intact Course Course Narrative: 20:13 Concern at this time is high for a pulmonary embolism as patient recently had a PE in February, DVT last week, and is tachycardic with pleuritic chest pain. She is currently hemodynamically stable, not in respiratory distress, and is normotensive. Will obtain chest pain workup including EKG, troponin, and chest x-ray. Will also obtain CBC, BMP. Will obtain CT angiogram of the chest. Pain control with 2 mg morphine and Zofran for nausea. 20:57 Lab workup generally unremarkable. Patient has elevations of her LFTs which are chronic and secondary to her pancreatic malignancy. CTA performed pending read. Patient will be signed out to night team in stable condition. Vital Signs Temperature 98.3 F 03/20/18 19:21 Pulse Rate 110 03/20/18 19:21 Respiratory Rate 18 03/20/18 19:21 Blood Pressure 137/88 03/20/18 19:21 O2 Sat by Pulse Oximetry 96 03/20/18 19:21 Temperature 98.3 F 03/20/18 20:19 Pulse Rate 110 03/20/18 20:19 Respiratory Rate 18 03/20/18 20:19 Blood Pressure 137/88 03/20/18 20:19 O2 Sat by Pulse Oximetry 96 03/20/18 20:19 Oxygen Delivery Oxygen Delivery Room Air Medical Decision Making - Lab Data Result diagrams: 03/20/18 20:06 03/20/18 20:06 Lab Results 03/20/18 03/20/18 03/20/18 Range/Units 20:06 20:06 20:06 WBC 7.3 (4.3-11.1) K/mcL RBC 4.70 (3.82-4.97) M/mcL Hgb 14.1 (11.5-15.4) g/dL Hct 41.8 (35.3-44.9) % MCV 88.9 (83.0-100.0) fL MCH 30.0 (28.0-33.3) pg MCHC 33.7 (31.6-35.5) g/dL RDW 12.2 (11.5-14.5) % Plt Count 215 (140-400) K/mcL MPV 9.2 L (9.4-12.4) fL Immature Gran % 0.7 (0-4) % Seg Neutrophils % 74.4 % Lymphocytes % 22.3 % Monocytes % 1.1 % Eosinophils % 1.2 % Basophils % 0.3 % Neutrophils # 5.4 (1.6-8.9) K/mcL Lymphocytes # 1.6 (0.6-4.6) K/mcL Monocytes # 0.1 (0.0-1.3) K/mcL Eosinophils # 0.1 (0.0-0.6) K/mcL Basophils # 0.0 (0.0-0.2) K/mcL Immature Plt Fraction 2.7 (1.1-6.1) % PT 11.5 (9.4-12.1) Seconds INR 1.0 APTT 30.1 (26.0-36.0) Seconds Sodium 130 L (136-145) mEq/L Potassium 3.7 (3.5-5.1) mEq/L Chloride 93 L (98-107) mEq/L Carbon Dioxide 25 (23-29) mEq/L BUN 18 (8-23) mg/dL Creatinine 0.77 (0.60-1.20) mg/dL Est GFR ( Amer) > 60 (> 60) Est GFR (Non-Af Amer) > 60 (> 60) BUN/Creatinine Ratio 23 (6-26) Glucose 121 H (70-105) mg/dL Calculated Osmolality 273 L (280-300) Lactic Acid (0.5-2.2) mmol/L Calcium 8.9 (8.6-10.3) mg/dL Total Bilirubin (0.3-1.0) mg/dL Direct Bilirubin (0.0-0.2) mg/dL Indirect Bilirubin (0.0-1.2) mg/dL AST (13-39) Units/L ALT (7-52) Units/L Alkaline Phosphatase (34-104) Units/L Troponin I < 0.03 (< 0.04) ng/mL B-Natriuretic Peptide (Less than 100) pg/mL Serum Total Protein (6.4-8.9) g/dL Albumin (3.5-5.7) g/dL Globulin (2.4-3.5) g/dL Albumin/Globulin Ratio (1.1-2.2) 03/20/18 03/20/18 03/20/18 Range/Units 20:06 20:06 20:06 WBC (4.3-11.1) K/mcL RBC (3.82-4.97) M/mcL Hgb (11.5-15.4) g/dL Hct (35.3-44.9) % MCV (83.0-100.0) fL MCH (28.0-33.3) pg MCHC (31.6-35.5) g/dL RDW (11.5-14.5) % Plt Count (140-400) K/mcL MPV (9.4-12.4) fL Immature Gran % (0-4) % Seg Neutrophils % % Lymphocytes % % Monocytes % % Eosinophils % % Basophils % % Neutrophils # (1.6-8.9) K/mcL Lymphocytes # (0.6-4.6) K/mcL Monocytes # (0.0-1.3) K/mcL Eosinophils # (0.0-0.6) K/mcL Basophils # (0.0-0.2) K/mcL Immature Plt Fraction (1.1-6.1) % PT (9.4-12.1) Seconds INR APTT (26.0-36.0) Seconds Sodium (136-145) mEq/L Potassium (3.5-5.1) mEq/L Chloride (98-107) mEq/L Carbon Dioxide (23-29) mEq/L BUN (8-23) mg/dL Creatinine (0.60-1.20) mg/dL Est GFR ( Amer) (> 60) Est GFR (Non-Af Amer) (> 60) BUN/Creatinine Ratio (6-26) Glucose (70-105) mg/dL Calculated Osmolality (280-300) Lactic Acid 0.9 (0.5-2.2) mmol/L Calcium (8.6-10.3) mg/dL Total Bilirubin 2.8 H (0.3-1.0) mg/dL Direct Bilirubin 1.6 H (0.0-0.2) mg/dL Indirect Bilirubin 1.2 (0.0-1.2) mg/dL AST 100 H (13-39) Units/L ALT 169 H (7-52) Units/L Alkaline Phosphatase 459 H (34-104) Units/L Troponin I (< 0.04) ng/mL B-Natriuretic Peptide 26 (Less than 100) pg/mL Serum Total Protein 6.8 (6.4-8.9) g/dL Albumin 3.5 (3.5-5.7) g/dL Globulin 3.3 (2.4-3.5) g/dL Albumin/Globulin Ratio 1.1 (1.1-2.2) - EKG Data EKG #1 EKG attestation: Yes I reviewed and interpreted this EKG. EKG results narrative: EKG shows sinus rhythm the heart rate of 98. Normal axis, early R-wave progression. Normal PA and QT intervals. There is a single-lead borderline ST depression V3 that is unchanged from previous EKG dated 03/11/2018. No T-wave changes. Sinus rhythm, normal EKG. S.B.A.R. - S.B.A.R. Situation: Demographics (62-year-old female with a history of pancreatic malignancy and prior PE) Background: Presenting Complaint (Pleuritic right-sided chest pain), Relevant PMH, Meds, & Allergies (Pancreatic malignancy, PE February 2018, DVT March 2018 on Lovenox at home,) Assessment: Vital Signs (Hemodynamically stable, patient was tachycardic to 110 on presentation.), Course and respsone to treatment (Performing chest pain and PE workup. Lab workup generally unremarkable so far, CTA read pending.), Exam Concerns (Concern for pulmonary embolus.), Pertinant Lab Results (Elevated LFTs secondary to pancreatic malignancy. ), Outstanding Labs (Pending CTA read) Recommendation: Barrier(s) to disposition (No barriers to disposition, pending CTA read patient may require admission to hospital for IV heparin.), Recommendation based on pending studies, treatments, or consults (CTA pending, if PE positive patient would require inpatient treatment.) Attestation Statement - Attestation Attestation: Patient was seen with resident physician. I reviewed the history, physical, assessment and plan, and agree with the findings. I also personally evaluated this patient and had [id number] time with this patient. 62-year-old female presents to the emergency department with chest pain. Patient states chest pain is on the left side and left breast feels deeper than superficial it sharpens nature and worse with inspiration. Patient has a history of DVT last week she is currently taking Lovenox for. She also has a history of PE last month. Patient was diagnosed recently with pancreatic cancer and is set to start chemotherapy soon. She denies fevers or chills. She does have some shortness of breath associated with chest pain. Review of systems as above remained reviewed. Physical exam vital signs stable. ENT is unremarkable. Heart regular rhythm and rate. Chest wall is stable I could not reproduce the pain. Abdomen is soft and nontender. Lungs are clear to auscultation. Extremities are unremarkable. Neurologically intact. Skin no rashes. Psych normal. ED course. We will get a CTA of the chest to rule out worsening or recurrence of her PEs. We will also check basic labs. EKG did not show acute ischemic changes. Patient's lab tests and CT were pending at the time of shift change. Patient was signed out to the automatic nailing machine feeder doctor all pertinent information was r eviewed including what was pending and potential outcomes. She is hemodynamically stable at the time of shift change. Dr. Ramirez will be the physician to take over patient care. I agree with resident physician assessment and plan.
[2018-03-20 20:25] LABS: Basophils % 0.3 %; Eosinophils # 0.1 K/mcL (0.0-0.6); Eosinophils % 1.2 %; Hematocrit 41.8 % (35.3-44.9); Hemoglobin 14.1 g/dL (11.5-15.4); Immature Granulocytes % 0.7 % (0-4); Immature Platelets 2.7 % (1.1-6.1); Lymphocytes # 1.6 K/mcL (0.6-4.6); Lymphocytes % 22.3 %; Mean Corpuscular HGB Conc 33.7 g/dL (31.6-35.5); Mean Corpuscular Volume 88.9 fL (83.0-100.0); Mean Platelet Volume 9.2 fL (9.4-12.4); Monocytes # 0.1 K/mcL (0.0-1.3); Monocytes % 1.1 %; Neutrophils # 5.4 K/mcL (1.6-8.9); Platelet Count 215 K/mcL (140-400); Red Cell Distribution Width 12.2 % (11.5-14.5); Segmented Neutrophils % 74.4 %
[2018-03-20 20:32] LABS: Prothrombin Time 11.5 Seconds (9.4-12.1)
[2018-03-20 20:34] LABS: Activated Partial Thrombo Time 30.1 Seconds (26.0-36.0)
[2018-03-20 20:37] LABS: Albumin 3.5 g/dL (3.5-5.7); Albumin/Globulin Ratio 1.1 (1.1-2.2); Bilirubin,Direct 1.6 mg/dL (0.0-0.2); Bilirubin,Indirect 1.2 mg/dL (0.0-1.2); Bilirubin,Total 2.8 mg/dL (0.3-1.0); Globulin 3.3 g/dL (2.4-3.5); Total Protein 6.8 g/dL (6.4-8.9)
[2018-03-20 20:39] LABS: BUN/Creatinine Ratio 23 (6-26); Blood Urea Nitrogen 18 mg/dL (8-23); Calcium 8.9 mg/dL (8.6-10.3); Carbon Dioxide 25 mEq/L (23-29); Chloride 93 mEq/L (98-107); Glucose 121 mg/dL (70-105); Osmolality,Calculated 273 (280-300); Potassium 3.7 mEq/L (3.5-5.1); Sodium 130 mEq/L (136-145); eGFR For Non-African Americans > 60 (> 60)
[2018-03-20 20:40] LABS: Troponin I < 0.03 ng/mL (< 0.04)
--- NOTE | 2018-03-20 21:28 | Emergency Department Note ---
Disposition Clinical Impression: Chest pain Qualifiers: Chest pain type: unspecified Qualified Code(s): R07.9 - Chest pain, unspecified Pulmonary emboli Qualifiers: Pulmonary embolism type: other Chronicity: acute Acute cor pulmonale presence: without acute cor pulmonale Qualified Code(s): I26.99 - Other pulmonary embolism without acute cor pulmonale Disposition: Still a Patient Condition: Fair Referrals: NONE,PCP [Primary Care Provider] - Forms: ED Satisfaction Letter Time of Disposition: 23:14 General Adult HPI - General Chief complaint: ED Abdominal Pain Stated complaint: LISETTE/vomiting x 1 day Time Seen by Provider: 03/20/18 19:40 Source: patient Limitations: no limitations Nursing Notes Reviewed: Yes Vital Signs Reviewed: Yes - History of Present Illness HPI Narrative: Patient received on signout from Dr. Tarango and Dr. Escalera. Please see their note for complete history of present illness, review of systems, physical, medical decision making until time of signout at 21:00. Pending: CTA chest. History of present illness brief: 62-year-old female presents for right-sided chest pain. Described as sharp, worsened with inspiration. She is concerned as it feels identical in character and intensity to her previous pulmonary embolism which, at that time, was on the left side. Patient was diagnosed with PE February this year, on Lovenox. She was diagnosed with DVT March this year. She has currently active pancreatic cancer and started chemotherapy one week ago. No radiation therapy. Pain Scale: 8 - Related Data Home Medications Medication Instructions Recorded Confirmed Ibuprofen [Motrin] 800 mg PO Q8HR PRN 02/05/18 03/02/18 Lisinopril/Hydrochlorothiazide 1 tab PO DAILY 02/05/18 03/02/18 [Zestoretic 20-25 mg Tablet] Omeprazole [PriLOSEC] 20 mg PO DAILY 02/05/18 03/02/18 amLODIPine [Norvasc] 5 mg PO DAILY 02/05/18 03/02/18 Previous Rx's Medication Instructions Recorded Enoxaparin [Lovenox] 80 mg SQ Q12HR #60 syr 03/02/18 Lidocaine/Prilocaine [Emla] 1 appl TP AD #30 gm 03/09/18 Loperamide [Imodium] 2 mg PO AD PRN #30 capsule 03/09/18 Magic Mouthwash 5 ml PO Q4H PRN #240 ml 03/09/18 Ondansetron ODT [Zofran ODT] 4 mg SL Q6HR #20 tab.rapdis 03/09/18 Prochlorperazine Maleate 10 mg PO Q6HR PRN #30 tablet 03/09/18 [Compazine] Fosaprepitant Dimeglumine [Emend] 150 mg IVPB Q2W #12 vial 03/16/18 Potassium Chloride 1 tab PO DAILY #30 tab.er.prt 03/16/18 Allergies Allergy/AdvReac Type Severity Reaction Status Date / Time Penicillins Allergy Rash Verified 03/02/18 10:04 Sulfa (Sulfonamide Allergy Rash Verified 03/02/18 10:04 Antibiotics) Past Medical History - Past Medical History Medical history: Reports: arthritis, cancer, GERD, hypertension Psychiatric history: Reports: no psych history - Social History Smoking Status: Never smoker Smokeless Tobacco Status: No Alcohol use: Reports: none, occasionally Drug use: Reports: none Physical Exam - General Limitations: no limitations General appearance: alert, in no apparent distress Course Course Narrative: Chart check from recent oncology note: Oncologist: Dr. Teran Bilateral PE Echo 02/05/2018 LVEF 60-68% BL LE DVT 02/05/2018: RLE DVT in peroneal vein. EUS 02/24/2018: hypoechoic pancreatic tail mass with multiple liver lesions. Pancreatic mass - adenocarcinoma Liver biopsy - suspicious for metastatic carcinoma Hx allergic reaction likely to atropine. Serum hematology is unremarkable. Serum chemistry shows mild hyponatremia which does not explain the patient's pleuritic chest symptoms. Hepatic function, though elevated, his expected considering her hepatic metastasis. CTA chest shows PE in the second and third order branches of the right lower lob e. I discussed the above the patient. She is agreeable to admission for her continued pain with breathing which is causing her breathe shallow. Concern this may evolve into pneumonia. I discussed the above the admitting hospitalist, Dr. Mccrary. We will begin heparin. Patient will be admitted for right lower lobe PE fell on Lovenox as well as continued evaluation monitor for pleuritic chest pain. Chest CTA 03/20/18 19:49 IMPRESSION: 1. Findings compatible with 2nd and 3rd order branch pulmonary embolus to the right lower lobe. 2. Multiple hypodensities in the liver, as above, consistent with metastatic disease. 3. Gallstones. Critical results were called by Dr. Rosy Carlton MD to Dillon Tarango on 03/20/2018 at 21:52. D/ / 03/20/2018 21:56:23 Rosy Carlton MD / bcarter Interpreting Provider: Rosy Carlton MD Chest X-Ray 03/20/18 19:49 IMPRESSION: No acute abnormality. D/ / Rai Eason MD / Rai Eason MD Interpreting Provider: Rai Eason MD Vital Signs Temperature 98.3 F 03/20/18 19:21 Pulse Rate 110 03/20/18 19:21 Respiratory Rate 18 03/20/18 19:21 Blood Pressure 137/88 03/20/18 19:21 O2 Sat by Pulse Oximetry 96 03/20/18 19:21 Temperature 98.3 F 03/20/18 20:19 Pulse Rate 87 03/20/18 22:09 Respiratory Rate 20 03/20/18 22:09 Blood Pressure 129/95 03/20/18 22:09 O2 Sat by Pulse Oximetry 96 03/20/18 22:09 Oxygen Delivery Oxygen Delivery Room Air Medical Decision Making - Lab Data Result diagrams: 03/20/18 20:06 03/20/18 20:06 Lab Results 03/20/18 03/20/18 03/20/18 Range/Units 20:06 20:06 20:06 WBC 7.3 (4.3-11.1) K/mcL RBC 4.70 (3.82-4.97) M/mcL Hgb 14.1 (11.5-15.4) g/dL Hct 41.8 (35.3-44.9) % MCV 88.9 (83.0-100.0) fL MCH 30.0 (28.0-33.3) pg MCHC 33.7 (31.6-35.5) g/dL RDW 12.2 (11.5-14.5) % Plt Count 215 (140-400) K/mcL MPV 9.2 L (9.4-12.4) fL Immature Gran % 0.7 (0-4) % Seg Neutrophils % 74.4 % Lymphocytes % 22.3 % Monocytes % 1.1 % Eosinophils % 1.2 % Basophils % 0.3 % Neutrophils # 5.4 (1.6-8.9) K/mcL Lymphocytes # 1.6 (0.6-4.6) K/mcL Monocytes # 0.1 (0.0-1.3) K/mcL Eosinophils # 0.1 (0.0-0.6) K/mcL Basophils # 0.0 (0.0-0.2) K/mcL Immature Plt Fraction 2.7 (1.1-6.1) % PT 11.5 (9.4-12.1) Seconds INR 1.0 APTT 30.1 (26.0-36.0) Seconds Sodium 130 L (136-145) mEq/L Potassium 3.7 (3.5-5.1) mEq/L Chloride 93 L (98-107) mEq/L Carbon Dioxide 25 (23-29) mEq/L BUN 18 (8-23) mg/dL Creatinine 0.77 (0.60-1.20) mg/dL Est GFR ( Amer) > 60 (> 60) Est GFR (Non-Af Amer) > 60 (> 60) BUN/Creatinine Ratio 23 (6-26) Glucose 121 H (70-105) mg/dL Calculated Osmolality 273 L (280-300) Lactic Acid (0.5-2.2) mmol/L Calcium 8.9 (8.6-10.3) mg/dL Total Bilirubin (0.3-1.0) mg/dL Direct Bilirubin (0.0-0.2) mg/dL Indirect Bilirubin (0.0-1.2) mg/dL AST (13-39) Units/L ALT (7-52) Units/L Alkaline Phosphatase (34-104) Units/L Troponin I < 0.03 (< 0.04) ng/mL B-Natriuretic Peptide (Less than 100) pg/mL Serum Total Protein (6.4-8.9) g/dL Albumin (3.5-5.7) g/dL Globulin (2.4-3.5) g/dL Albumin/Globulin Ratio (1.1-2.2) 03/20/18 03/20/18 03/20/18 Range/Units 20:06 20:06 20:06 WBC (4.3-11.1) K/mcL RBC (3.82-4.97) M/mcL Hgb (11.5-15.4) g/dL Hct (35.3-44.9) % MCV (83.0-100.0) fL MCH (28.0-33.3) pg MCHC (31.6-35.5) g/dL RDW (11.5-14.5) % Plt Count (140-400) K/mcL MPV (9.4-12.4) fL Immature Gran % (0-4) % Seg Neutrophils % % Lymphocytes % % Monocytes % % Eosinophils % % Basophils % % Neutrophils # (1.6-8.9) K/mcL Lymphocytes # (0.6-4.6) K/mcL Monocytes # (0.0-1.3) K/mcL Eosinophils # (0.0-0.6) K/mcL Basophils # (0.0-0.2) K/mcL Immature Plt Fraction (1.1-6.1) % PT (9.4-12.1) Seconds INR APTT (26.0-36.0) Seconds Sodium (136-145) mEq/L Potassium (3.5-5.1) mEq/L Chloride (98-107) mEq/L Carbon Dioxide (23-29) mEq/L BUN (8-23) mg/dL Creatinine (0.60-1.20) mg/dL Est GFR ( Amer) (> 60) Est GFR (Non-Af Amer) (> 60) BUN/Creatinine Ratio (6-26) Glucose (70-105) mg/dL Calculated Osmolality (280-300) Lactic Acid 0.9 (0.5-2.2) mmol/L Calcium (8.6-10.3) mg/dL Total Bilirubin 2.8 H (0.3-1.0) mg/dL Direct Bilirubin 1.6 H (0.0-0.2) mg/dL Indirect Bilirubin 1.2 (0.0-1.2) mg/dL AST 100 H (13-39) Units/L ALT 169 H (7-52) Units/L Alkaline Phosphatase 459 H (34-104) Units/L Troponin I (< 0.04) ng/mL B-Natriuretic Peptide 26 (Less than 100) pg/mL Serum Total Protein 6.8 (6.4-8.9) g/dL Albumin 3.5 (3.5-5.7) g/dL Globulin 3.3 (2.4-3.5) g/dL Albumin/Globulin Ratio 1.1 (1.1-2.2)
[2018-03-20] MEDS ORDERED: 0.9 % Sodium Chloride 1,000 ML IVC ONE (21:30)
[2018-03-20] MEDS ORDERED: *HR* Heparin 5,000 UNIT/ML VIAL IVP PRN ×2 (23:05)
[2018-03-20] MEDS ORDERED: *HR* Heparin 5,000 UNIT/ML VIAL IVP ONE (23:05)
[2018-03-20 23:54] LABS: Hematocrit 39.8 % (35.3-44.9); Hemoglobin 12.8 g/dL (11.5-15.4); Mean Corpuscular HGB Conc 32.2 g/dL (31.6-35.5); Mean Corpuscular Volume 93.4 fL (83.0-100.0); Mean Platelet Volume 10.4 fL (9.4-12.4); Platelet Count 263 K/mcL (140-400); Red Blood Count 4.26 M/mcL (3.82-4.97); Red Cell Distribution Width 13.9 % (11.5-14.5)
--- NOTE | 2018-03-20 23:58 | Emergency Department Note ---
Disposition Clinical Impression: Chest pain Qualifiers: Chest pain type: unspecified Qualified Code(s): R07.9 - Chest pain, unspecified Pulmonary emboli Qualifiers: Pulmonary embolism type: other Chronicity: acute Acute cor pulmonale presence: without acute cor pulmonale Qualified Code(s): I26.99 - Other pulmonary embolism without acute cor pulmonale Disposition: Admitted As Inpatient Condition: Fair General Adult HPI - General Chief complaint: ED Abdominal Pain Stated complaint: LISETTE/vomiting x 1 day Time Seen by Provider: 03/20/18 19:40 Source: patient Limitations: no limitations Nursing Notes Reviewed: Yes Vital Signs Reviewed: Yes - History of Present Illness Pain Scale: 2 - Related Data Home Medications Medication Instructions Recorded Confirmed Ibuprofen [Motrin] 800 mg PO Q8HR PRN 02/05/18 03/02/18 Lisinopril/Hydrochlorothiazide 1 tab PO DAILY 02/05/18 03/02/18 [Zestoretic 20-25 mg Tablet] Omeprazole [PriLOSEC] 20 mg PO DAILY 02/05/18 03/02/18 amLODIPine [Norvasc] 5 mg PO DAILY 02/05/18 03/02/18 Previous Rx's Medication Instructions Recorded Enoxaparin [Lovenox] 80 mg SQ Q12HR #60 syr 03/02/18 Lidocaine/Prilocaine [Emla] 1 appl TP AD #30 gm 03/09/18 Loperamide [Imodium] 2 mg PO AD PRN #30 capsule 03/09/18 Magic Mouthwash 5 ml PO Q4H PRN #240 ml 03/09/18 Ondansetron ODT [Zofran ODT] 4 mg SL Q6HR #20 tab.rapdis 03/09/18 Prochlorperazine Maleate 10 mg PO Q6HR PRN #30 tablet 03/09/18 [Compazine] Fosaprepitant Dimeglumine [Emend] 150 mg IVPB Q2W #12 vial 03/16/18 Potassium Chloride 1 tab PO DAILY #30 tab.er.prt 03/16/18 Allergies Allergy/AdvReac Type Severity Reaction Status Date / Time Penicillins Allergy Rash Verified 03/02/18 10:04 Sulfa (Sulfonamide Allergy Rash Verified 03/02/18 10:04 Antibiotics) Past Medical History - Past Medical History Medical history: Reports: arthritis, cancer, GERD, hypertension Psychiatric history: Reports: no psych history - Social History Smoking Status: Never smoker Smokeless Tobacco Status: No Alcohol use: Reports: none, occasionally Drug use: Reports: none Physical Exam - General Limitations: no limitations General appearance: alert, in no apparent distress Course Vital Signs Temperature 98.3 F 03/20/18 19:21 Pulse Rate 110 03/20/18 19:21 Respiratory Rate 18 03/20/18 19:21 Blood Pressure 137/88 03/20/18 19:21 O2 Sat by Pulse Oximetry 96 03/20/18 19:21 Temperature 98.3 F 03/20/18 20:19 Pulse Rate 87 03/20/18 22:09 Respiratory Rate 16 03/20/18 23:32 Blood Pressure 134/85 03/20/18 23:32 O2 Sat by Pulse Oximetry 96 03/20/18 22:09 Oxygen Delivery Oxygen Delivery Room Air Medical Decision Making - Medical Records Medical records reviewed: Yes I reviewed the patient's medical records. - Lab Data Lab results reviewed: Yes I reviewed the patient's lab results. Result diagrams: 03/20/18 23:15 03/20/18 20:06 Lab Results 03/20/18 03/20/18 03/20/18 Range/Units 20:06 20:06 20:06 WBC 7.3 (4.3-11.1) K/mcL RBC 4.70 (3.82-4.97) M/mcL Hgb 14.1 (11.5-15.4) g/dL Hct 41.8 (35.3-44.9) % MCV 88.9 (83.0-100.0) fL MCH 30.0 (28.0-33.3) pg MCHC 33.7 (31.6-35.5) g/dL RDW 12.2 (11.5-14.5) % Plt Count 215 (140-400) K/mcL MPV 9.2 L (9.4-12.4) fL Immature Gran % 0.7 (0-4) % Seg Neutrophils % 74.4 % Lymphocytes % 22.3 % Monocytes % 1.1 % Eosinophils % 1.2 % Basophils % 0.3 % Neutrophils # 5.4 (1.6-8.9) K/mcL Lymphocytes # 1.6 (0.6-4.6) K/mcL Monocytes # 0.1 (0.0-1.3) K/mcL Eosinophils # 0.1 (0.0-0.6) K/mcL Basophils # 0.0 (0.0-0.2) K/mcL Immature Plt Fraction 2.7 (1.1-6.1) % PT 11.5 (9.4-12.1) Seconds INR 1.0 APTT 30.1 (26.0-36.0) Seconds Heparin Anti-Xa, Unfract (0.30-0.70) IU/mL Sodium 130 L (136-145) mEq/L Potassium 3.7 (3.5-5.1) mEq/L Chloride 93 L (98-107) mEq/L Carbon Dioxide 25 (23-29) mEq/L BUN 18 (8-23) mg/dL Creatinine 0.77 (0.60-1.20) mg/dL Est GFR ( Amer) > 60 (> 60) Est GFR (Non-Af Amer) > 60 (> 60) BUN/Creatinine Ratio 23 (6-26) Glucose 121 H (70-105) mg/dL Calculated Osmolality 273 L (280-300) Lactic Acid (0.5-2.2) mmol/L Calcium 8.9 (8.6-10.3) mg/dL Total Bilirubin (0.3-1.0) mg/dL Direct Bilirubin (0.0-0.2) mg/dL Indirect Bilirubin (0.0-1.2) mg/dL AST (13-39) Units/L ALT (7-52) Units/L Alkaline Phosphatase (34-104) Units/L Troponin I < 0.03 (< 0.04) ng/mL B-Natriuretic Peptide (Less than 100) pg/mL Serum Total Protein (6.4-8.9) g/dL Albumin (3.5-5.7) g/dL Globulin (2.4-3.5) g/dL Albumin/Globulin Ratio (1.1-2.2) 03/20/18 03/20/18 03/20/18 Range/Units 20:06 20:06 20:06 WBC (4.3-11.1) K/mcL RBC (3.82-4.97) M/mcL Hgb (11.5-15.4) g/dL Hct (35.3-44.9) % MCV (83.0-100.0) fL MCH (28.0-33.3) pg MCHC (31.6-35.5) g/dL RDW (11.5-14.5) % Plt Count (140-400) K/mcL MPV (9.4-12.4) fL Immature Gran % (0-4) % Seg Neutrophils % % Lymphocytes % % Monocytes % % Eosinophils % % Basophils % % Neutrophils # (1.6-8.9) K/mcL Lymphocytes # (0.6-4.6) K/mcL Monocytes # (0.0-1.3) K/mcL Eosinophils # (0.0-0.6) K/mcL Basophils # (0.0-0.2) K/mcL Immature Plt Fraction (1.1-6.1) % PT (9.4-12.1) Seconds INR APTT (26.0-36.0) Seconds Heparin Anti-Xa, Unfract (0.30-0.70) IU/mL Sodium (136-145) mEq/L Potassium (3.5-5.1) mEq/L Chloride (98-107) mEq/L Carbon Dioxide (23-29) mEq/L BUN (8-23) mg/dL Creatinine (0.60-1.20) mg/dL Est GFR ( Amer) (> 60) Est GFR (Non-Af Amer) (> 60) BUN/Creatinine Ratio (6-26) Glucose (70-105) mg/dL Calculated Osmolality (280-300) Lactic Acid 0.9 (0.5-2.2) mmol/L Calcium (8.6-10.3) mg/dL Total Bilirubin 2.8 H (0.3-1.0) mg/dL Direct Bilirubin 1.6 H (0.0-0.2) mg/dL Indirect Bilirubin 1.2 (0.0-1.2) mg/dL AST 100 H (13-39) Units/L ALT 169 H (7-52) Units/L Alkaline Phosphatase 459 H (34-104) Units/L Troponin I (< 0.04) ng/mL B-Natriuretic Peptide 26 (Less than 100) pg/mL Serum Total Protein 6.8 (6.4-8.9) g/dL Albumin 3.5 (3.5-5.7) g/dL Globulin 3.3 (2.4-3.5) g/dL Albumin/Globulin Ratio 1.1 (1.1-2.2) 03/20/18 03/20/18 Range/Units 23:15 23:15 WBC 10.3 (4.3-11.1) K/mcL RBC 4.26 (3.82-4.97) M/mcL Hgb 12.8 (11.5-15.4) g/dL Hct 39.8 (35.3-44.9) % MCV 93.4 (83.0-100.0) fL MCH 30.0 (28.0-33.3) pg MCHC 32.2 (31.6-35.5) g/dL RDW 13.9 (11.5-14.5) % Plt Count 263 (140-400) K/mcL MPV 10.4 (9.4-12.4) fL Immature Gran % (0-4) % Seg Neutrophils % % Lymphocytes % % Monocytes % % Eosinophils % % Basophils % % Neutrophils # (1.6-8.9) K/mcL Lymphocytes # (0.6-4.6) K/mcL Monocytes # (0.0-1.3) K/mcL Eosinophils # (0.0-0.6) K/mcL Basophils # (0.0-0.2) K/mcL Immature Plt Fraction (1.1-6.1) % PT (9.4-12.1) Seconds INR APTT (26.0-36.0) Seconds Heparin Anti-Xa, Unfract 0.04 L (0.30-0.70) IU/mL Sodium (136-145) mEq/L Potassium (3.5-5.1) mEq/L Chloride (98-107) mEq/L Carbon Dioxide (23-29) mEq/L BUN (8-23) mg/dL Creatinine (0.60-1.20) mg/dL Est GFR ( Amer) (> 60) Est GFR (Non-Af Amer) (> 60) BUN/Creatinine Ratio (6-26) Glucose (70-105) mg/dL Calculated Osmolality (280-300) Lactic Acid (0.5-2.2) mmol/L Calcium (8.6-10.3) mg/dL Total Bilirubin (0.3-1.0) mg/dL Direct Bilirubin (0.0-0.2) mg/dL Indirect Bilirubin (0.0-1.2) mg/dL AST (13-39) Units/L ALT (7-52) Units/L Alkaline Phosphatase (34-104) Units/L Troponin I (< 0.04) ng/mL B-Natriuretic Peptide (Less than 100) pg/mL Serum Total Protein (6.4-8.9) g/dL Albumin (3.5-5.7) g/dL Globulin (2.4-3.5) g/dL Albumin/Globulin Ratio (1.1-2.2) - Radiology Data Radiology results reviewed: Yes I reviewed the patient's radiology results. Chest CTA 03/20/18 19:49 IMPRESSION: 1. Findings compatible with 2nd and 3rd order branch pulmonary embolus to the right lower lobe. 2. Multiple hypodensities in the liver, as above, consistent with known metastatic disease. 3. Gallstones. Critical results were called by Dr. Rosy Carlton MD to Dillon Tarango on 03/20/2018 at 21:52. D/ / 03/20/2018 21:56:23 Rosy Carlton MD / joelle Interpreting Provider: Rosy Carlton MD Chest X-Ray 03/20/18 19:49 IMPRESSION: No acute abnormality. D/ / Rai Eason MD / Rai Eason MD Interpreting Provider: Rai Eason MD Critical Care Time Critical Care Time: Yes Total Critical Care Time: 40 Attestation: Critical care performed: Time is exclusive of separately billable procedures. Time includes: direct patient care, patient reassessment, coordination of patient care, interpretation of data (laboratory data, radiology data, and respiratory data), review of p atient's medical records, medical consultation and documentation of patient care. Procedures included in critical care time: Procedures excluded from critical care time: Attestation Statement - Attestation Attestation: I, Jesus Ramirez MD, personally evaluated this patient and discussed their management with the resident physician. I reviewed the resident's note and agree with the documented findings, medical decision making, and plan of care. This patient was signed out at shift change from Dr. Escalera and Dr. Tarango. Please refer to their notes for complete details of the history and physical examination. Patient has a known history of pancreatic cancer with metastasis. Also has a history of DVT and pulmonary emboli. She is on Lovenox injections. At shift change patient is awaiting a CTA of the chest prior to admission. CTA returned and did show small pulmonary emboli in the right lower lobe. Also showed metastatic lesions to the liver as well as gallstones. Results discussed with patient and . Patient agreeable with admission. Patient was started on heparin infusion. The hospitalist, Dr. Mccrary, was consulted and accepted admission of the patient.
[2018-03-21] MEDS: Heparin 25,000 UNIT/500 ML D5W 25,000 UNIT/500 ML BAG IVC SCH (00:25)
[2018-03-21] MEDS ORDERED: Magic Mouthwash 10 ML UD Cup PO PRN (02:38)
[2018-03-21] MEDS ORDERED: Ibuprofen 800 MG TABLET PO PRN (02:38)
[2018-03-21] MEDS ORDERED: Naloxone 0.4 MG/ML INJ IVP PRN (02:41)
[2018-03-21] MEDS ORDERED: traMADol 50 MG TABLET PO PRN (02:41)
[2018-03-21] MEDS ORDERED: *HR* OxyCODONE Immed Rel 5 MG TABLET PO PRN (02:41)
--- NOTE | 2018-03-21 03:07 | Internal Med History&Physical ---
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 She has since been on therapeutic low molecular weight heparin and was started on chemotherapy this past week. She comes to the ER now complaining of pain in her right lower chest that she describes as pleuritic in nature that started only over these past few days and is progressively worsening. She denies cough and expectoration and has not been taking anything for pain at home. The ER chest CT was done which showed pulmonary emboli in the second and third order branches of the right lower lobe. On review of her last chest CT however it is noted that she had extensive clot burden in both lung schwab therefore I am unable to state if this is new clot formation or persistent disease as she has only been on anticoagulation for about 4 weeks. Given her new pleuritic pain symptoms however in her history it is decided she stay for observation and is now placed on heparin drip in the interim. She offers no other complaints at this time. She states that the only side effect shows thus far suffered from chemotherapy is nausea. Past Med Surg Social Fam HX - Past Medical History Medical history: arthritis, cancer, GERD, hypertension Additional medical history: pancreatic CA Psychiatric history: no psych history - Past Surgical History Additional surgical history: tubes tied, PORT - Social History Smoking Status: Never smoker Smokeless Tobacco Status: No Alcohol use: none Drug use: none - Family History Father Living Status: Hx Family Cancer: Yes (Prostrate) Internal Medicine - H&P: Meds Ibuprofen [Motrin] 800 mg PO Q8HR PRN 02/05/18 [History] Lisinopril/Hydrochlorothiazide [Zestoretic 20-25 mg Tablet] 1 tab PO DAILY 02/05/18 [History] Omeprazole [PriLOSEC] 20 mg PO DAILY 02/05/18 [History] amLODIPine [Norvasc] 5 mg PO DAILY 02/05/18 [History] Enoxaparin [Lovenox] 80 mg SQ Q12HR #60 syr 03/02/18 [Rx] Lidocaine/Prilocaine [Emla] 1 appl TP AD #30 gm 03/09/18 [Rx] Loperamide [Imodium] 2 mg PO AD PRN #30 capsule 03/09/18 [Rx] Magic Mouthwash 5 ml PO Q4H PRN #240 ml 03/09/18 [Rx] Ondansetron ODT [Zofran ODT] 4 mg SL Q6HR #20 tab.rapdis 03/09/18 [Rx] Prochlorperazine Maleate [Compazine] 10 mg PO Q6HR PRN #30 tablet 03/09/18 [Rx] Fosaprepitant Dimeglumine [Emend] 150 mg IVPB Q2W #12 vial 03/16/18 [Rx] Potassium Chloride 1 tab PO DAILY #30 tab.er.prt 03/16/18 [Rx] Allergy/AdvReac Type Severity Reaction Status Date / Time Penicillins Allergy Rash Verified 03/02/18 10:04 Sulfa (Sulfonamide Allergy Rash Verified 03/02/18 10:04 Antibiotics) All Systems PM: A 10-system review of systems was performed and is negative for pertinent findings except as documented above in the HPI. - Constitutional Vitals: Temp Pulse Resp BP Pulse Ox 97.7 F 93 16 148/96 95 03/21/18 00:53 03/21/18 00:53 03/21/18 00:53 03/21/18 00:53 03/21/18 00:53 Exam: Vitals: Reviewed General: Well-appearing and in no acute distress. Skin: Pale and dry. HEENT: Likely dry mucous membranes. Positive conjunctivae pallor. Neck: No lymphadenopathy. No JVD. No carotid bruits. No palpable thyroid. Chest: Diminished thoracic expansion. Normal breath sounds. Clear to au scultation. Heart: Normal S1 & S2; rhythmic. No rubs or murmurs. Abdomen: Non-distended, soft and non-tender to palpation. No peritoneal reaction. Extremities: No clubbing, cyanosis. No calf tenderness. Normal distal pulses. Neurological: Awake, alert and oriented to person, place and time. No focal deficits. Psych: Affect appropriate. Internal Med - H&P Results - Labs CBC & Chem 7: 03/20/18 23:15 03/20/18 20:06 Labs: Short CBC 12/15/18 12/15/18 Range/Units 20:06 23:15 WBC 7.3 10.3 (4.3-11.1) K/mcL Hgb 14.1 12.8 (11.5-15.4) g/dL Hct 41.8 39.8 (35.3-44.9) % Plt Count 215 263 (140-400) K/mcL Neutrophils # 5.4 (1.6-8.9) K/mcL BMP 03/20/18 20:06 Sodium 130 L Potassium 3.7 Chloride 93 L Carbon Dioxide 25 BUN 18 Creatinine 0.77 Glucose 121 H Calcium 8.9 Cardiac Enzymes 03/20/18 Range/Units 20:06 Troponin I < 0.03 (< 0.04) ng/mL Liver Function 03/20/18 Range/Units 20:06 Total Bilirubin 2.8 H (0.3-1.0) mg/dL Direct Bilirubin 1.6 H (0.0-0.2) mg/dL AST 100 H (13-39) Units/L ALT 169 H (7-52) Units/L Alkaline Phosphatase 459 H (34-104) Units/L Albumin 3.5 (3.5-5.7) g/dL - Impressions ITS Impressions Chest CTA 03/20/18 19:49 IMPRESSION: 1. Findings compatible with 2nd and 3rd order branch pulmonary embolus to the right lower lobe. 2. Multiple hypodensities in the liver, as above, consistent with known metastatic disease. 3. Gallstones. Critical results were called by Dr. Rosy Carlton MD to Dillon Tarango on 03/20/2018 at 21:52. D/ / 03/20/2018 21:56:23 Rosy Carlton MD / bcarter Interpreting Provider: Rosy Carlton MD Chest X-Ray 03/20/18 19:49 IMPRESSION: No acute abnormality. D/ / Rai Eason MD / Rai Eason MD Interpreting Provider: Rai Eason MD - Assessment and plan (1) Chest pain Current Visit: Yes Status: Acute Assessment and plan: Located to the right base and pleuritic in nature. It could be secondary to her underlying emboli which may not necessarily be new burden as it is in the same distribution. Will check an echo however to assess for right heart strain if not already done. Another differential could be pain associated with metastatic liver lesions. Will keep her on heparin for the time being and consideration can be given to hematology evaluation prior to resuming LMWH. Qualifiers: Chest pain type: unspecified Qualified Code(s): R07.9 - Chest pain, unspecified (2) Pancreatic adenocarcinoma Current Visit: Yes Status: Acute Assessment and plan: Care as per oncology. (3) Nausea Current Visit: Yes Status: Acute Assessment and plan: Anti-emetics ordered prn. (4) Pulmonary embolus Current Visit: Yes Status: Acute Assessment and plan: On anticoagulation as indicated above. Qualifiers: Pulmonary embolism type: other Chronicity: acute Acute cor pulmonale pres ence: without acute cor pulmonale Qualified Code(s): I26.99 - Other pulmonary embolism without acute cor pulmonale (5) Abnormal LFTs Current Visit: Yes Status: Acute Assessment and plan: Not a new finding. Seems related to her metastatic liver disease. Should be monitored. (6) Electrolyte abnormality Current Visit: Yes Status: Acute Assessment and plan: As evidenced by hyponatremia and hypochloremia likely associated with a volume depleted state. Will assess response to IVF. - Time Spent With Patient Total time spent is greater than 50% in coordination of care (as documented) at patient's floor/unit and/or counseling patient: Greater than 35 minutes
[2018-03-21] MEDS: Ondansetron ODT 4 MG TAB.RAPDIS SL PRN ×2 (04:38→16:42)
[2018-03-21 08:07] LABS: BUN/Creatinine Ratio 29 (6-26); Blood Urea Nitrogen 19 mg/dL (8-23); Calcium 8.4 mg/dL (8.6-10.3); Carbon Dioxide 24 mEq/L (23-29); Chloride 97 mEq/L (98-107); Glucose 122 mg/dL (70-105); Osmolality,Calculated 274 (280-300); Potassium 3.6 mEq/L (3.5-5.1); Sodium 130 mEq/L (136-145); eGFR For Non-African Americans > 60 (> 60)
[2018-03-21] MEDS: amLODIPine 5 MG TABLET PO SCH (12:50)
--- NOTE | 2018-03-21 13:12 | Internal Med Progress Note ---
Hospitalist Progress Note - Encounter Date of Encounter: 03/21/18 Time of Encounter: 08:00 - Subjective Interval History: Patient was seen and examined at bedside. Reports that her chest pain has resolved. Denies palpitations, nausea, vomiting, diarrhea. She was compliant with her Lovenox injections that she was discharged with as outpatient. Has no other complaints. Tolerating by mouth diet - Exam Vitals: Temp Pulse Resp BP Pulse Ox 97.6 F 93 15 130/85 95 03/21/18 11:31 03/21/18 11:31 03/21/18 11:31 03/21/18 11:31 03/21/18 11:31 Exam: Vitals: Reviewed General: Well-appearing and in no acute distress. Skin: Pale and dry. HEENT: Likely dry mucous membranes. Positive conjunctivae pallor. Neck: No lymphadenopathy. No JVD. No carotid bruits. No palpable thyroid. Chest: Diminished thoracic expansion. Normal breath sounds. Clear to auscultation. Heart: Normal S1 & S2; rhythmic. No rubs or murmurs. Abdomen: Non-distended, soft and non-tender to palpation. No peritoneal reaction. Extremities: No clubbing, cyanosis. No calf tenderness. Normal distal pulses. Neurological: Awake, alert and oriented to person, place and time. No focal deficits. Psych: Affect appropriate. - Assessment and Plan (1) Pulmonary embolus Current Visit: Yes Status: Acute Assessment and Plan: On heparin drip Echocardiogram performed on 03/21 without any evidence of right ventricular strain EF of 60-65% Was recently diagnosed with bilateral pulmonary embolus in February 2018 and was discharged with therapeutic Lovenox Oncology/hematology consulted will follow recommendations for anticoagulation. (2) Pancreatic adenocarcinoma Current Visit: Yes Status: Acute Assessment and Plan: Recently diagnosed in February 2018 Follows with [facility]. Oncology has been consulted on this admission will follow further recommendatio ns. (3) Abnormal LFTs Current Visit: Yes Status: Acute Assessment and Plan: Most likely secondary to metastatic disease ALP 459 was 366 on 03/15 ALT 169 was 182 on 03/15 AST 100 was 120 on 03/15 We will continue to monitor LFTs (4) Electrolyte abnormality Current Visit: Yes Status: Acute Assessment and Plan: Hypovolemic hyponatremia. We will continue with IV fluids Follow BMP in the morning (5) Nausea Current Visit: Yes Status: Acute Assessment and Plan: Resolved. (6) DVT prophylaxis Current Visit: Yes Status: Acute Assessment and Plan: On heparin drip - Time Spent with Patient Total time spent is greater than 50% in coordination of care (as documented) at patient's floor/unit and/or counseling patient: Internal Medicine: Result - Labs CBC & Chem 7: 03/20/18 23:15 03/21/18 07:10 Labs: Short CBC 03/20/18 03/20/18 Range/Units 20:06 23:15 WBC 7.3 10.3 (4.3-11.1) K/mcL Hgb 14.1 12.8 (11.5-15.4) g/dL Hct 41.8 39.8 (35.3-44.9) % Plt Count 215 263 (140-400) K/mcL Neutrophils # 5.4 (1.6-8.9) K/mcL BMP 03/20/18 03/21/18 20:06 07:10 Sodium 130 L 130 L Potassium 3.7 3.6 Chloride 93 L 97 L Carbon Dioxide 25 24 BUN 18 19 Creatinine 0.77 0.66 Glucose 121 H 122 H Calcium 8.9 8.4 L Cardiac Enzymes 03/20/18 Range/Units 20:06 Troponin I < 0.03 (< 0.04) ng/mL Liver Function 03/20/18 Range/Units 20:06 Total Bilirubin 2.8 H (0.3-1.0) mg/dL Direct Bilirubin 1.6 H (0.0-0.2) mg/dL AST 100 H (13-39) Units/L ALT 169 H (7-52) Units/L Alkaline Phosphatase 459 H (34-104) Units/L Albumin 3.5 (3.5-5.7) g/dL - ABG Interpretation ABG results: PT/INR, D-dimer PT 11.5 Seconds (9.4-12.1) 03/20/18 20:06 - Impressions Impressions Chest CTA 03/20/18 19:49 IMPRESSION: 1. Findings compatible with 2nd and 3rd order branch pulmonary embolus to the right lower lobe. 2. Multiple hypodensities in the liver, as above, consistent with known metastatic disease. 3. Gallstones. Critical results were called by Dr. Rosy Carlton MD to Dillon Tarango on 03/20/2018 at 21:52. D/ / 03/20/2018 21:56:23 Rosy Carlton MD / joelle Interpreting Provider: Rosy Carlton MD Chest X-Ray 03/20/18 19:49 IMPRESSION: No acute abnormality. D/ / Rai Eason MD / Rai Eason MD Interpreting Provider: Rai Eason MD Echocardiogram Limited Views 03/21/18 02:40 Impressions: Limited Echo. LVEF 60-65%. Grossly normal right ventricular structure and function. Left Ventricular Wall Motion: Rest Echo Findings All wall segments showed normal motion. Findings: Study Quality * Technically adequate exam. ECG Findings * Normal sinus rhythm. Left Ventricle * LVEF 60-65%. * Normal LV chamber size, wall thickness and function. Right Ventricle * Grossly normal right ventricular structure and function. No TAPSE or tissue doppler. Left Atrium * Normal left atrial size. Right Atrium * Normal right atrial size. IVC * The IVC is not well evaluated. Tricuspid Valve * No doppler. Consult Discharge Plan - Plan Referrals: NONE,PCP [Primary Care Provider] - (1) Pulmonary embolus Qualifiers: Pulmonary embolism type: other Chronicity: acute Acute cor pulmonale presence: without acute cor pulmonale Qualified Code(s): I26.99 - Other pulmonary embolism without acute cor pulmonale
--- NOTE | 2018-03-21 20:22 | Oncology Inp Consult Note ---
Date of Encounter: 03/21/18 Time of Encounter: 15:00 Assessment and Plan (1) Pancreatic adenocarcinoma Status: Acute Assessment and plan: metastatic multiple liver mets and very high CA19-9 started cycle one of FOLFIRINOX recently. Tolerated well. Labs normal. Pleuritic pain, related to PE, liver mets-right upper quadrant discomfort. On IV heparin with hx PE and symptoms of pleuritic pain. Restart lovenox BID at discharge (1mg/kg).She denies bleeding symptoms. Unclear if she held lovenox for longer period of time prior to port removal. On oxycodone prn for metastatic painful liver lesions. C2 chemotherapy as outpatient. Plan reviewed with patient and family. - Data of Consult Requesting Physician: Agata Davidson MD Primary Care Provider: PCP NONE - Consult Narrative Reason for consult: PE, pancreatic cancer History of present illness: 62 yo female with medical history significant for HTN, PE bilateral on anticoagulation with lovenox, pancreatic cancer stage IV with metastatic disease to liver, s/p biopsy and C1 modified FOLFIRINOX on 03/15/18, admitted with rt lung PE ?new, with symptoms of pleuritic CP. She was on lovenox 80BID at home, for recent diagnosis of right lower extremity DVT in the peroneal vein superficial phlebitis right lesser saphenous vein. She also had bilateral PE then and had presented with abdominal pain, when imaging showed pancreatic cancer liver mets in addition to the clots. Reports lovenox was held prior to port placement few days ago and she restarted after. She has pain the rt lower chest/rt upper quadrant abd/ no nausea or diarrhea. She has decreased appetite and anorexia. She is not needing oxygen and on heparin drip. Past Med Surg Social Fam HX - Past Medical History Medical history: arthritis, cancer, GERD, hypertension Additional medical history: pancreatic CA Psychiatric history: no psych history - Past Surgical History Additional surgical history: tubes tied, PORT - Social History Smoking Status: Never smoker Smokeless Tobacco Status: No Alcohol use: none Drug use: none - Family History Father Living Status: Hx Family Cancer: Yes (Prostrate) Medications and Allergies RX: Ibuprofen [Motrin] 800 mg PO Q8HR PRN 02/05/18 [History] RX: Lisinopril/Hydrochlorothiazide [Zestoretic 20-25 mg Tablet] 1 tab PO DAILY 02/05/18 [History] RX: Omeprazole [PriLOSEC] 20 mg PO DAILY 02/05/18 [History] RX: amLODIPine [Norvasc] 5 mg PO DAILY 02/05/18 [History] RX: Enoxaparin [Lovenox] 80 mg SQ Q12HR #60 syr 03/02/18 [Rx] Lidocaine/Prilocaine [Emla] 1 appl TP AD #30 gm 03/09/18 [Rx] Loperamide [Imodium] 2 mg PO AD PRN #30 capsule 03/09/18 [Rx] Prochlorperazine Maleate [Compazine] 10 mg PO Q6HR PRN #30 tablet 03/09/18 [Rx] RX: Magic Mouthwash 5 ml PO Q4H PRN #240 ml 03/09/18 [Rx] RX: Ondansetron ODT [Zofran ODT] 4 mg SL Q6HR #20 tab.rapdis 03/09/18 [Rx] Fosaprepitant Dimeglumine [Emend] 150 mg IVPB Q2W #12 vial 03/16/18 [Rx] RX: Potassium Chloride 1 tab PO DAILY #30 tab.er.prt 03/16/18 [Rx] Allergy/AdvReac Type Severity Reaction Status Date / Time Penicillins Allergy Rash Verified 03/02/18 10:04 Sulfa (Sulfonamide Allergy Rash Verified 03/02/18 10:04 Antibiotics) Constitutional: Present: anorexia, fatigue Cardiovascular: Present: chest pain Respiratory: Present: cough Gastrointestinal: Present: nausea Additional comments: bruising Additional comments: no headaches Psychiatric: Present: change in appetite Oncology - Exam - Constitutional General appearance: no acute distress, obese - Head Head exam: Present: atraumatic, normal inspection - Eye Eye exam: Present: sclera anicteric - ENT ENT exam: Present: mucous membranes moist - Neck Neck exam: Present: full ROM - Respiratory Respiratory exam: Present: CTAB - Cardiovascular Cardiovascular exam: Present: +S1, +S2 - GI/Abdominal GI/Abdominal exam: Present: normal bowel sounds, soft Additional comments: non tender - Extremities Exam Extremities exam: Present: normal inspection Additional comments: no edema - Neurological Exam Neurological exam: Present: alert, CN II-XII intact, oriented X3, reflexes normal - Psychiatric Psychiatric exam: Present: normal mood - Skin Skin exam: Present: normal color, warm Consult Discharge Plan - Plan Referrals: NONE,PCP [Primary Care Provider] - Inpatient Charges Provider: Dr. Semaj Brown Consult - Inpatient: [id number]
[2018-03-22] MEDS: Ondansetron ODT 4 MG TAB.RAPDIS SL PRN ×2 (00:32→08:29)
[2018-03-22] MEDS: Heparin 25,000 UNIT/500 ML D5W 25,000 UNIT/500 ML BAG IVC SCH (03:41)
[2018-03-22 05:43] LABS: Hematocrit 34.3 % (35.3-44.9); Hemoglobin 11.4 g/dL (11.5-15.4); Mean Corpuscular HGB Conc 33.2 g/dL (31.6-35.5); Mean Corpuscular Hemoglobin 29.7 pg (28.0-33.3); Mean Corpuscular Volume 89.3 fL (83.0-100.0); Mean Platelet Volume 9.4 fL (9.4-12.4); Platelet Count 124 K/mcL (140-400); Red Blood Count 3.84 M/mcL (3.82-4.97); Red Cell Distribution Width 12.3 % (11.5-14.5)
[2018-03-22 06:19] LABS: Alanine Aminotransferase 128 Units/L (7-52); Albumin 2.9 g/dL (3.5-5.7); Albumin/Globulin Ratio 1.1 (1.1-2.2); Alkaline Phosphatase 363 Units/L (34-104); Aspartate Amino Transferase 79 Units/L (13-39); BUN/Creatinine Ratio 26 (6-26); Bilirubin,Total 1.7 mg/dL (0.3-1.0); Blood Urea Nitrogen 23 mg/dL (8-23); Calcium 8.3 mg/dL (8.6-10.3); Carbon Dioxide 24 mEq/L (23-29); Chloride 96 mEq/L (98-107); Globulin 2.6 g/dL (2.4-3.5); Glucose 122 mg/dL (70-105); Osmolality,Calculated 273 (280-300); Potassium 3.6 mEq/L (3.5-5.1); Sodium 129 mEq/L (136-145); Total Protein 5.5 g/dL (6.4-8.9); eGFR For Non-African Americans > 60 (> 60)
[2018-03-22 07:31] VITALS: BP 126/79
[2018-03-22] MEDS: amLODIPine 5 MG TABLET PO SCH (08:28)
[2018-03-22] MEDS ORDERED: *HR* Enoxaparin 80 MG/0.8 ML SYRINGE SQ SCH (09:16)
--- NOTE | 2018-03-22 09:31 | Discharge Summary ---
- NOTES TO OUTPATIENT PROVIDER Notes to Outpatient Provider: vanesa lutz BMP and CBC. follow up with oncology for continuing chemotherapy Orders not resulted at time of discharge: Pending orders 03/22/18 09:15 CBC no Diff [Complete Blood Count w/o Diff] [HEME] Stat 03/22/18 23:20 Heparin anti-factor XA UFH [COAG] Timed 03/23/18 04:00 CBC no Diff [Complete Blood Count w/o Diff] [HEME] AM 0400 CMP [Comprehensive Metabolic Panel] AM 0400 03/24/18 04:00 CBC no Diff [Complete Blood Count w/o Diff] [HEME] AM 0400 CMP [Comprehensive Metabolic Panel] AM 0400 03/25/18 04:00 CBC no Diff [Complete Blood Count w/o Diff] [HEME] AM 0400 CMP [Comprehensive Metabolic Panel] AM 0400 03/26/18 04:00 CBC no Diff [Complete Blood Count w/o Diff] [HEME] AM 0400 CMP [Comprehensive Metabolic Panel] AM 0400 Date of Encounter: 03/22/18 Time of Encounter: 09:27 - Discharge Diagnosis (1) Pulmonary embolus Priority: Primary Status: Acute Qualifiers: Pulmonary embolism type: other Chronicity: acute Acute cor pulmonale presence: without acute cor pulmonale Qualified Code(s): I26.99 - Other pulmonary embolism without acute cor pulmonale (2) Pancreatic adenocarcinoma Priority: Secondary Status: Acute (3) Abnormal LFTs Priority: Secondary Status: Acute (4) Electrolyte abnormality Priority: Secondary Status: Acute (5) Nausea Priority: Secondary Status: Acute (6) DVT prophylaxis Priority: Secondary Status: Acute Hospital course: "Marsha Long is a 62-year-old woman with hypertension who was diagnosed with 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 She has since been on therapeutic low molecular weight heparin and was started on chemotherapy this past week. She comes to the ER now complaining of pain in her right lower chest that she describes as pleuritic in nature that started only over these past few days and is progressively worsening. She denies cough and expectoration and has not been taking anything for pain at home. The ER chest CT was done which showed pulmonary emboli in the second and third order branches of the right lower lobe. On review of her last chest CT however it is noted that she had extensive clot burden in both lung f ields therefore I am unable to state if this is new clot formation or persistent disease as she has only been on anticoagulation for about 4 weeks. Given her new pleuritic pain symptoms however in her history it is decided she stay for observation and is now placed on heparin drip in the interim. She offers no other complaints at this time. She states that the only side effect shows thus far suffered from chemotherapy is nausea" patient presented with above presentation. CT chest showed second and third right branch pulmonary embolus in the right lower lobe. Along with multiple hypodensities in the liver which are consistent with known metastatic disease along with gallstones. She was started on heparin drip. Hematology and oncology were consulted and recommended her to follow and be discharged with her Lovenox Dose injections at home. She had transaminitis on admission which were most likely secondary to metastatic multiple liver mets and very high CA19-9 started cycle one of FOLFIRINOX recently. She also showed assymptomatic hyponatremia throughout admission was on heparin drip with D5 in addition to HCTZ. HCTZ was discontinued for PCP to follow BMP and follow electrolytes. Discharge discussed with: patient, nurse, alliance consultant - Time Spent with Patient Total time spent providing and/or coordinating discharge services: Less than 30 minutes - Discharge Medications Prescriptions: Enoxaparin [Lovenox] 80 mg SQ Q12HR 30 Days #60 syr Lisinopril [Zestril] 20 mg PO DAILY #30 tablet Home Medications: Ibuprofen [Motrin] 800 mg PO Q8HR PRN 02/05/18 [History] Omeprazole [PriLOSEC] 20 mg PO DAILY 02/05/18 [History] amLODIPine [Norvasc] 5 mg PO DAILY 02/05/18 [History] Lidocaine/Prilocaine [Emla] 1 appl TP AD #30 gm 03/09/18 [Rx] Loperamide [Imodium] 2 mg PO AD PRN #30 capsule 03/09/18 [Rx] Magic Mouthwash 5 ml PO Q4H PRN #240 ml 03/09/18 [Rx] Ondansetron ODT [Zofran ODT] 4 mg SL Q6HR #20 tab.rapdis 03/09/18 [Rx] Prochlorperazine Maleate [Compazine] 10 mg PO Q6HR PRN #30 tablet 03/09/18 [Rx] Fosaprepitant Dimeglumine [Emend] 150 mg IVPB Q2W #12 vial 03/16/18 [Rx] Potassium Chloride 1 tab PO DAILY #30 tab.er.prt 03/16/18 [Rx] Enoxaparin [Lovenox] 80 mg SQ Q12HR 30 Days #60 syr 03/22/18 [Rx] Lisinopril [Zestril] 20 mg PO DAILY #30 tablet 03/22/18 [Rx] Allergies/Adverse Reactions: Allergy/AdvReac Type Severity Reaction Status Date / Time Penicillins Allergy Rash Verified 03/02/18 10:04 Sulfa (Sulfonamide Allergy Rash Verified 03/02/18 10:04 Antibiotics) Date of admission: 03/20/18 23:19 Primary care physician: PCP NONE Consults: 03/21/18 01:07 Consult to Nutrition [CONS] Routine Comment: Consulting Provider: NUTRITION Reason for Dietary Consult: MST Score 03/21/18 06:54 Consult to Oncology Hematology [CONS] Routine Consulting Provider: Dale Teran Reason for Consult: Patient with extensive PE/DVT and being managed for metastatic pancreatic cancer. Comes in with ongoing pleuritic right lower chest pain. CT showing emboli which may be persistent from a month ago however given new symptoms, was placed on heparin drip and LMWH was held. Concern for malignancy associated pain as well. Call Completed: No - Constitutional Vitals: Temp Pulse Resp BP Pulse Ox 97.4 F L 95 16 126/79 98 03/22/18 07:27 03/22/18 07:27 03/22/18 07:27 03/22/18 07:27 03/22/18 07:27 Exam: Vitals: Reviewed General: Well-appearing and in no acute distress. Skin: Pale and dry. HEENT: Likely dry mucous membranes. Positive conjunctivae pallor. Neck: No lymphadenopathy. No JVD. No carotid bruits. No palpable thyroid. Chest: Diminished thoracic expansion. Normal breath sounds. Clear to auscultation. Heart: Normal S1 & S2; rhythmic. No rubs or murmurs. Abdomen: Non-distended, soft and non-tender to palpation. No peritoneal reaction. Extremities: No clubbing, cyanosis. No calf tenderness. Normal distal pulses. Neurological: Awake, alert and oriented to person, place and time. No focal deficits. Psych: Affect appropriate. - Patient Status Disposition: Home, Self-Care Condition: Fair Functional capacity at discharge: independent ambulation Overall status at discharge: patient is progressing back to baseline - Discharge Instructions Follow Up With: NONE,PCP [Primary Care Provider] - - Diet and Activity Activity: increase activity as tolerated Diet: advance to your usual diet
[2018-03-22 10:03] LABS: Hematocrit 34.1 % (35.3-44.9); Hemoglobin 11.7 g/dL (11.5-15.4); Mean Corpuscular HGB Conc 34.3 g/dL (31.6-35.5); Mean Corpuscular Hemoglobin 30.2 pg (28.0-33.3); Mean Corpuscular Volume 87.9 fL (83.0-100.0); Mean Platelet Volume 9.4 fL (9.4-12.4); Platelet Count 125 K/mcL (140-400); Red Blood Count 3.88 M/mcL (3.82-4.97); Red Cell Distribution Width 12.4 % (11.5-14.5)
--- NOTE | 2018-03-22 15:03 | Electrocardiograph Report ---
[place] [id number] Test Date: 2018-03-20 Pat Name: Marsha Long Department: EXAM11 Room: 2NE30 Gender: F Glove Cutter: : [id number] Requested By: Dillon Tarango Order Number: [id number] Reading MD: Jean Alarcon Measurements Intervals [place] Rate: 98 P: 63 DE: 132 QRS: 53 QRSD: 91 T: 38 QT: 356 QTc: 455 Interpretive Statements Sinus rhythm Abnormal R-wave progression, early transition Borderline ST depression, diffuse leads Electronically Signed On 03-22-2018 15:02:06 EST by Jean Alarcon
== END 2018-03-22 10:52 | disposition home or self-care (01) ==
LOC: EMEROOARM 19:14 → 2NENU 19:14 → SUATTDRO 23:19 → 2NENU 03-21 00:34
PROVIDERS: ADMIT Internal Medicine; ATTEND Internal Medicine

== ENCOUNTER 2019-05-01 20:47 | Inpatient (IN) ==
[2019-05-01] MEDS ORDERED: Ondansetron 4 MG/2 ML VIAL IVP ONE (21:07)
[2019-05-01] MEDS ORDERED: 0.9 % Sodium Chloride 1,000 ML IVC ONE (21:07)
[2019-05-01] MEDS ORDERED: *HR* FentaNYL (PF) 100 MCG/2 ML VIAL IVP ONE (21:07)
[2019-05-01 22:11] LABS: Alanine Aminotransferase 108 Units/L (7-52); Albumin 2.9 g/dL (3.5-5.7); Albumin/Globulin Ratio 0.9 (1.1-2.2); Alkaline Phosphatase 558 Units/L (34-104); Aspartate Amino Transferase 287 Units/L (13-39); BUN/Creatinine Ratio 24 (6-26); Bilirubin,Direct 9.2 mg/dL (0.0-0.2); Bilirubin,Indirect 5.5 mg/dL (0.0-1.0); Bilirubin,Total 14.7 mg/dL (0.3-1.0); Blood Urea Nitrogen 18 mg/dL (8-23); Calcium 8.1 mg/dL (8.6-10.3); Carbon Dioxide 24 mEq/L (23-29); Chloride 100 mEq/L (98-107); Globulin 3.1 g/dL (2.4-3.5); Glucose 123 mg/dL (70-105); Lipase 18 Units/L (11-82); Osmolality,Calculated 279 (280-300); Potassium 3.7 mEq/L (3.5-5.1); Sodium 133 mEq/L (136-145); Troponin I 0.04 ng/mL (< 0.04); eGFR For African Americans > 60 (> 60); eGFR For Non-African Americans > 60 (> 60)
[2019-05-01 22:19] LABS: Bilirubin,Urine Large (Negative); Blood,Urine Negative (Negative); Clarity,Urine Cloudy (Clear); Color,Urine Orange (Yellow); Glucose,Urine (UA) Normal (Normal); Ketones,Urine Trace mg/dL (Negative); Leukocyte Esterase,Urine Small (Negative); Nitrite,Urine Positive (Negative); Protein,Urine Negative (Neg-Trace); Specific Gravity,Urine 1.028 (1.010-1.025); Urobilinogen,Urine Normal (Normal)
[2019-05-01 22:22] LABS: RBC,Urine 0-3 per hpf (0-3); Squamous Epithelial Cell,Urine Many per lpf (None-Few); WBC,Urine 0-3 per hpf (0-3)
[2019-05-01 22:24] LABS: Basophils % 0.3 %; Eosinophils % 0.4 %; Hematocrit 33.4 % (35.3-44.9); Hemoglobin 12.3 g/dL (11.5-15.4); Immature Granulocytes % 0.5 % (0-4); Lymphocytes # 1.9 K/mcL (0.6-4.6); Lymphocytes % 16.7 %; Mean Corpuscular HGB Conc 36.8 g/dL (31.6-35.5); Mean Corpuscular Hemoglobin 33.5 pg (28.0-33.3); Mean Platelet Volume 10.2 fL (9.4-12.4); Monocytes % 17.6 %; Neutrophils # 7.1 K/mcL (1.6-8.9); Platelet Count 191 K/mcL (140-400); Red Blood Count 3.67 M/mcL (3.82-4.97); Red Cell Distribution Width 16.3 % (11.5-14.5); Segmented Neutrophils % 64.5 %; White Blood Count 11.1 K/mcL (4.3-11.1)
[2019-05-01 22:34] LABS: Bacteria,Urine Few per hpf (None-Few)
[2019-05-01 22:37] LABS: INR 1.1; Prothrombin Time 12.8 Seconds (9.4-12.1)
[2019-05-01 22:40] LABS: Activated Partial Thrombo Time 22.1 Seconds (26.0-36.0)
[2019-05-01] MEDS ORDERED: cefTRIAXone 1,000 MG in Water for inj. (sterile) 10 ML IVP ONE (22:45)
[2019-05-01] MEDS ORDERED: MetroNIDAZOLE 500 MG/100 ML 500 MG/100 ML BAG IVPB ONE (23:06)
[2019-05-01] MEDS ORDERED: *HR* Heparin 5,000 UNIT/ML VIAL IVP PRN ×2 (23:10)
[2019-05-01] MEDS ORDERED: *HR* Heparin 5,000 UNIT/ML VIAL IVP ONE (23:10)
[2019-05-01] MEDS ORDERED: Heparin 25,000 UNIT/250 ML D5W 25,000 UNIT/250 ML IV.SOLN IVC SCH (23:15)
[2019-05-02] MEDS ORDERED: Naloxone 0.4 MG/ML INJ IVP PRN (00:34)
[2019-05-02] MEDS: 0.9 % Sodium Chloride 1,000 ML IVC SCH ×2 (03:43→14:00)
[2019-05-02 06:32] LABS: Albumin 2.5 g/dL (3.5-5.7); Bilirubin,Direct 8.6 mg/dL (0.0-0.2); Bilirubin,Indirect 4.6 mg/dL (0.0-1.0); Bilirubin,Total 13.2 mg/dL (0.3-1.0); Globulin 2.6 g/dL (2.4-3.5); Total Protein 5.1 g/dL (6.4-8.9)
[2019-05-02] MEDS: Cefepime HCl 2,000 MG in 0.9 % Sodium Chloride Mini Bag 100 ML IVPB SCH ×2 (07:37→17:40)
[2019-05-02] MEDS: *HR* OxyCODONE Immed Rel 5 MG TABLET PO PRN (07:42)
[2019-05-02] MEDS: MetroNIDAZOLE 500 MG/100 ML 500 MG/100 ML BAG IVPB SCH ×2 (08:15→16:39)
[2019-05-02] MEDS: Ondansetron 4 MG/2 ML VIAL IVP PRN (09:12)
[2019-05-02 10:49] LABS: Hematocrit 30.6 % (35.3-44.9); Mean Corpuscular Hemoglobin 33.5 pg (28.0-33.3); Mean Corpuscular Volume 95.9 fL (83.0-100.0); Mean Platelet Volume 10.3 fL (9.4-12.4); Platelet Count 139 K/mcL (140-400); Red Blood Count 3.19 M/mcL (3.82-4.97); Red Cell Distribution Width 16.8 % (11.5-14.5); White Blood Count 8.5 K/mcL (4.3-11.1)
[2019-05-02 10:55] LABS: Hemoglobin 10.7 g/dL (11.5-15.4)
[2019-05-02 11:00] LABS: Heparin anti-factor XA UFH 0.4 IU/mL (0.30-0.70)
[2019-05-02 11:01] LABS: INR 1.3; Prothrombin Time 14.3 Seconds (9.4-12.1)
[2019-05-02] MEDS: Heparin 25,000 UNIT/250 ML D5W 25,000 UNIT/250 ML IV.SOLN IVC SCH ×2 (18:56→20:54)
[2019-05-03] MEDS: MetroNIDAZOLE 500 MG/100 ML 500 MG/100 ML BAG IVPB SCH ×3 (02:54→15:46)
[2019-05-03] MEDS: Cefepime HCl 2,000 MG in 0.9 % Sodium Chloride Mini Bag 100 ML IVPB SCH ×4 (02:56→23:59)
[2019-05-03] MEDS: 0.9 % Sodium Chloride 1,000 ML IVC SCH ×2 (04:33→15:15)
[2019-05-03] MEDS: Heparin 25,000 UNIT/250 ML D5W 25,000 UNIT/250 ML IV.SOLN IVC SCH (06:12)
[2019-05-03 06:39] LABS: Hematocrit 30.4 % (35.3-44.9); Hemoglobin 10.7 g/dL (11.5-15.4); Mean Corpuscular HGB Conc 35.2 g/dL (31.6-35.5); Mean Corpuscular Hemoglobin 33.1 pg (28.0-33.3); Mean Corpuscular Volume 94.1 fL (83.0-100.0); Mean Platelet Volume 9.7 fL (9.4-12.4); Platelet Count 155 K/mcL (140-400); Red Blood Count 3.23 M/mcL (3.82-4.97); Red Cell Distribution Width 17.2 % (11.5-14.5); White Blood Count 8.6 K/mcL (4.3-11.1)
[2019-05-03 06:58] LABS: Alanine Aminotransferase 89 Units/L (7-52); Albumin 2.4 g/dL (3.5-5.7); Albumin/Globulin Ratio 0.9 (1.1-2.2); Alkaline Phosphatase 535 Units/L (34-104); Aspartate Amino Transferase 185 Units/L (13-39); BUN/Creatinine Ratio 25 (6-26); Bilirubin,Total 14.1 mg/dL (0.3-1.0); Blood Urea Nitrogen 16 mg/dL (8-23); Calcium 7.5 mg/dL (8.6-10.3); Carbon Dioxide 23 mEq/L (23-29); Chloride 104 mEq/L (98-107); Globulin 2.7 g/dL (2.4-3.5); Glucose 94 mg/dL (70-105); Osmolality,Calculated 283 (280-300); Potassium 3.7 mEq/L (3.5-5.1); Sodium 136 mEq/L (136-145); Total Protein 5.1 g/dL (6.4-8.9); eGFR For African Americans > 60 (> 60); eGFR For Non-African Americans > 60 (> 60)
[2019-05-03] MEDS: Ondansetron 4 MG/2 ML VIAL IVP PRN ×3 (11:39→21:08)
[2019-05-03] MEDS: Ringers Solution, Lactated 1,000 ML IVC SCH (17:31)
[2019-05-03] MEDS ORDERED: *HR* FentaNYL (PF) 100 MCG/2 ML VIAL ONE ×2 (17:41→18:32)
[2019-05-03] MEDS ORDERED: *HR* Propofol 200 MG/20 ML VIAL IVP ONE (17:41)
[2019-05-03] MEDS ORDERED: *HR* Succinylcholine 200 MG/10 ML VIAL IVP ONE (17:43)
[2019-05-03] MEDS ORDERED: Lidocaine -MPF 2% 2 ML VIAL ONE (17:43)
[2019-05-03] MEDS ORDERED: Lidocaine HCL 4 ML Topical Solution (Laryng-O-Jet Kit Sterile Pak) TP ONE (17:46)
[2019-05-03] MEDS ORDERED: Dexamethasone 4 MG/ML VIAL ONE (18:19)
[2019-05-03] MEDS ORDERED: Ondansetron 4 MG/2 ML VIAL ONE (18:19)
[2019-05-04 06:14] LABS: Basophils % 0.1 %; Hematocrit 30.6 % (35.3-44.9); Hemoglobin 10.6 g/dL (11.5-15.4); Immature Granulocytes % 0.6 % (0-4); Lymphocytes # 0.7 K/mcL (0.6-4.6); Lymphocytes % 9.3 %; Mean Corpuscular HGB Conc 34.6 g/dL (31.6-35.5); Mean Corpuscular Volume 98.1 fL (83.0-100.0); Mean Platelet Volume 10.6 fL (9.4-12.4); Monocytes # 0.6 K/mcL (0.0-1.3); Monocytes % 7.1 %; Neutrophils # 6.4 K/mcL (1.6-8.9); Platelet Count 96 K/mcL (140-400); Red Blood Count 3.12 M/mcL (3.82-4.97); Red Cell Distribution Width 17.7 % (11.5-14.5); Segmented Neutrophils % 82.9 %; White Blood Count 7.7 K/mcL (4.3-11.1)
[2019-05-04 06:31] LABS: Alanine Aminotransferase 95 Units/L (7-52); Albumin 2.4 g/dL (3.5-5.7); Albumin/Globulin Ratio 0.9 (1.1-2.2); Alkaline Phosphatase 540 Units/L (34-104); Aspartate Amino Transferase 230 Units/L (13-39); BUN/Creatinine Ratio 24 (6-26); Bilirubin,Direct 8.8 mg/dL (0.0-0.2); Bilirubin,Indirect 4.8 mg/dL (0.0-1.0); Bilirubin,Total 13.6 mg/dL (0.3-1.0); Blood Urea Nitrogen 19 mg/dL (8-23); Calcium 7.5 mg/dL (8.6-10.3); Carbon Dioxide 22 mEq/L (23-29); Chloride 105 mEq/L (98-107); Globulin 2.7 g/dL (2.4-3.5); Glucose 127 mg/dL (70-105); Osmolality,Calculated 288 (280-300); Potassium 3.9 mEq/L (3.5-5.1); Sodium 137 mEq/L (136-145); Total Protein 5.1 g/dL (6.4-8.9); eGFR For African Americans > 60 (> 60); eGFR For Non-African Americans > 60 (> 60)
[2019-05-04] MEDS: Heparin 25,000 UNIT/250 ML D5W 25,000 UNIT/250 ML IV.SOLN IVC SCH (06:48)
[2019-05-04] MEDS: Cefepime HCl 2,000 MG in 0.9 % Sodium Chloride Mini Bag 100 ML IVPB SCH ×3 (08:32→23:47)
[2019-05-04] MEDS: MetroNIDAZOLE 500 MG/100 ML 500 MG/100 ML BAG IVPB SCH ×4 (08:34→23:48)
[2019-05-04] MEDS: Ringers Solution, Lactated 1,000 ML IVC SCH (12:30)
[2019-05-04] MEDS: 0.9 % Sodium Chloride 1,000 ML IVC SCH (15:24)
[2019-05-04] MEDS: Gabapentin 300 MG CAPSULE PO SCH ×2 (15:33→21:04)
[2019-05-04] MEDS: Ondansetron 4 MG/2 ML VIAL IVP PRN ×2 (15:33→23:47)
[2019-05-04] MEDS: *HR* OxyCODONE Immed Rel 5 MG TABLET PO PRN (15:42)
[2019-05-04] MEDS: Apixaban 5 MG TABLET PO SCH (21:04)
[2019-05-05] MEDS: Heparin 25,000 UNIT/250 ML D5W 25,000 UNIT/250 ML IV.SOLN IVC SCH ×2 (05:27→07:46)
[2019-05-05 06:01] LABS: Basophils % 0.2 %; Eosinophils # 0.1 K/mcL (0.0-0.6); Eosinophils % 0.8 %; Hematocrit 29.5 % (35.3-44.9); Hemoglobin 9.9 g/dL (11.5-15.4); Immature Platelets 6.4 % (1.1-6.1); Lymphocytes # 1.7 K/mcL (0.6-4.6); Lymphocytes % 19.5 %; Mean Corpuscular HGB Conc 33.6 g/dL (31.6-35.5); Mean Corpuscular Hemoglobin 32.9 pg (28.0-33.3); Mean Platelet Volume 11.6 fL (9.4-12.4); Monocytes # 1.1 K/mcL (0.0-1.3); Monocytes % 12.3 %; Neutrophils # 5.8 K/mcL (1.6-8.9); Red Blood Count 3.01 M/mcL (3.82-4.97); Red Cell Distribution Width 18.3 % (11.5-14.5); Segmented Neutrophils % 66.2 %; White Blood Count 8.7 K/mcL (4.3-11.1)
[2019-05-05 06:08] LABS: Platelet Count 84 K/mcL (140-400)
[2019-05-05] MEDS: MetroNIDAZOLE 500 MG/100 ML 500 MG/100 ML BAG IVPB SCH ×3 (08:31→22:59)
[2019-05-05] MEDS: Apixaban 5 MG TABLET PO SCH ×2 (08:32→22:40)
[2019-05-05] MEDS: Gabapentin 300 MG CAPSULE PO SCH ×3 (08:32→22:40)
[2019-05-05] MEDS: Ondansetron 4 MG/2 ML VIAL IVP PRN ×2 (08:32→22:58)
[2019-05-05] MEDS: Cefepime HCl 2,000 MG in 0.9 % Sodium Chloride Mini Bag 100 ML IVPB SCH ×3 (08:32→22:58)
[2019-05-05 08:47] LABS: Alanine Aminotransferase 88 Units/L (7-52); Albumin 2.3 g/dL (3.5-5.7); Albumin/Globulin Ratio 0.9 (1.1-2.2); Alkaline Phosphatase 510 Units/L (34-104); Aspartate Amino Transferase 183 Units/L (13-39); BUN/Creatinine Ratio 38 (6-26); Bilirubin,Indirect 4.1 mg/dL (0.0-1.0); Bilirubin,Total 11.1 mg/dL (0.3-1.0); Blood Urea Nitrogen 26 mg/dL (8-23); Calcium 7.5 mg/dL (8.6-10.3); Carbon Dioxide 22 mEq/L (23-29); Chloride 106 mEq/L (98-107); Globulin 2.6 g/dL (2.4-3.5); Glucose 117 mg/dL (70-105); Magnesium 1.8 mg/dL (1.6-2.6); Osmolality,Calculated 286 (280-300); Potassium 3.7 mEq/L (3.5-5.1); Sodium 135 mEq/L (136-145); Total Protein 4.9 g/dL (6.4-8.9); eGFR For African Americans > 60 (> 60); eGFR For Non-African Americans > 60 (> 60)
[2019-05-05] MEDS: Ringers Solution, Lactated 1,000 ML IVC SCH (09:41)
[2019-05-05] MEDS ORDERED: hydroCHLOROthiazide 25 MG TABLET PO PRN (18:06)
[2019-05-05] MEDS ORDERED: Loratadine 10 MG TABLET PO PRN (18:06)
[2019-05-05] MEDS: Magnesium Oxide 400 MG TABLET PO SCH (22:40)
[2019-05-06] MEDS: *HR* OxyCODONE Immed Rel 5 MG TABLET PO PRN (00:25)
[2019-05-06 05:09] LABS: Basophils % 0.3 %; Hemoglobin 10.1 g/dL (11.5-15.4); Lymphocytes % 19.9 %; Red Cell Distribution Width 18.6 % (11.5-14.5)
[2019-05-06 05:10] LABS: Eosinophils # 0.2 K/mcL (0.0-0.6); Eosinophils % 1.6 %; Hematocrit 29.7 % (35.3-44.9); Immature Granulocytes % 1.7 % (0-4); Immature Platelets 8.8 % (1.1-6.1); Lymphocytes # 2.3 K/mcL (0.6-4.6); Mean Corpuscular Hemoglobin 33.7 pg (28.0-33.3); Mean Platelet Volume 11.6 fL (9.4-12.4); Monocytes # 1.5 K/mcL (0.0-1.3); Monocytes % 12.9 %; Neutrophils # 7.3 K/mcL (1.6-8.9); Nucleated Red Blood Cells 0.2 /100 WBC (0); Segmented Neutrophils % 63.6 %; White Blood Count 11.5 K/mcL (4.3-11.1)
[2019-05-06 05:11] LABS: Platelet Count 86 K/mcL (140-400)
[2019-05-06 05:18] LABS: Alanine Aminotransferase 91 Units/L (7-52); Albumin 2.3 g/dL (3.5-5.7); Albumin/Globulin Ratio 0.9 (1.1-2.2); Alkaline Phosphatase 541 Units/L (34-104); Aspartate Amino Transferase 179 Units/L (13-39); BUN/Creatinine Ratio 41 (6-26); Bilirubin,Indirect 3.8 mg/dL (0.0-1.0); Bilirubin,Total 10.8 mg/dL (0.3-1.0); Blood Urea Nitrogen 26 mg/dL (8-23); Calcium 7.7 mg/dL (8.6-10.3); Carbon Dioxide 24 mEq/L (23-29); Chloride 104 mEq/L (98-107); Globulin 2.6 g/dL (2.4-3.5); Glucose 109 mg/dL (70-105); Osmolality,Calculated 287 (280-300); Sodium 136 mEq/L (136-145); Total Protein 4.9 g/dL (6.4-8.9); eGFR For African Americans > 60 (> 60); eGFR For Non-African Americans > 60 (> 60)
[2019-05-06] MEDS: MetroNIDAZOLE 500 MG/100 ML 500 MG/100 ML BAG IVPB SCH (09:08)
[2019-05-06] MEDS: Lisinopril 20 MG TABLET PO SCH (09:09)
[2019-05-06] MEDS: Magnesium Oxide 400 MG TABLET PO SCH ×2 (09:09→21:28)
[2019-05-06] MEDS: Gabapentin 300 MG CAPSULE PO SCH ×3 (09:09→21:28)
[2019-05-06] MEDS: Apixaban 5 MG TABLET PO SCH ×2 (09:09→21:28)
[2019-05-06] MEDS: Cefepime HCl 2,000 MG in 0.9 % Sodium Chloride Mini Bag 100 ML IVPB SCH (09:10)
[2019-05-06] MEDS: Ondansetron 4 MG/2 ML VIAL IVP PRN ×3 (10:00→21:05)
[2019-05-07 06:46] VITALS: BP 112/72
[2019-05-07] MEDS: Lisinopril 20 MG TABLET PO SCH (07:48)
[2019-05-07] MEDS: Magnesium Oxide 400 MG TABLET PO SCH (07:48)
[2019-05-07] MEDS: Gabapentin 300 MG CAPSULE PO SCH ×2 (07:48→14:30)
[2019-05-07] MEDS: Apixaban 5 MG TABLET PO SCH (07:48)
[2019-05-07] MEDS: Ondansetron 4 MG/2 ML VIAL IVP PRN (11:34)
== END 2019-05-07 15:25 | disposition home or self-care (01) | DRG 445 ==
LOC: SUATTDRO → EMEROOARM 20:47 → 3ANU 20:47 → SUATTDRO 05-02 01:31 → 3ANU 05-02 02:09
PROVIDERS: ADMIT Pharmacist; ATTEND Pharmacist

== ENCOUNTER 2019-05-13 13:09 | Inpatient (IN) ==
[2019-05-13] MEDS ORDERED: 0.9 % Sodium Chloride 1,000 ML IVC ONE ×2 (16:26→19:36)
[2019-05-13] MEDS ORDERED: Ondansetron 4 MG/2 ML VIAL IVP ONE (16:55)
[2019-05-13] MEDS ORDERED: *HR* HYDROmorphone (PF) 1 MG/ML SYRINGE IVP ONE (16:56)
[2019-05-13] MEDS ORDERED: Lactulose Oral Soln 20 GM/30 ML UDC PO ONE (17:04)
[2019-05-13 18:09] LABS: Basophils # 0.1 K/mcL (0.0-0.2); Basophils % 0.4 %; Eosinophils # 0.1 K/mcL (0.0-0.6); Eosinophils % 0.6 %; Hematocrit 35.2 % (35.3-44.9); Immature Granulocytes % 1.1 % (0-4); Lymphocytes # 1.8 K/mcL (0.6-4.6); Lymphocytes % 14.5 %; Mean Corpuscular HGB Conc 34.1 g/dL (31.6-35.5); Mean Corpuscular Hemoglobin 33.7 pg (28.0-33.3); Mean Corpuscular Volume 98.9 fL (83.0-100.0); Mean Platelet Volume 10.9 fL (9.4-12.4); Monocytes # 1.6 K/mcL (0.0-1.3); Monocytes % 12.9 %; Neutrophils # 8.6 K/mcL (1.6-8.9); Platelet Count 168 K/mcL (140-400); Red Blood Count 3.56 M/mcL (3.82-4.97); Red Cell Distribution Width 19.9 % (11.5-14.5); Segmented Neutrophils % 70.5 %; White Blood Count 12.2 K/mcL (4.3-11.1)
[2019-05-13 18:19] LABS: INR 1.2; Prothrombin Time 14.1 Seconds (9.4-12.1)
[2019-05-13 18:22] LABS: Activated Partial Thrombo Time 26.3 Seconds (26.0-36.0)
[2019-05-13 18:53] LABS: Albumin 2.4 g/dL (3.5-5.7); Albumin/Globulin Ratio 0.8 (1.1-2.2); Bilirubin,Direct 7.1 mg/dL (0.0-0.2); Bilirubin,Indirect 9.7 mg/dL (0.0-1.0); Bilirubin,Total 16.8 mg/dL (0.3-1.0); Calcium 8.1 mg/dL (8.6-10.3); Globulin 3.2 g/dL (2.4-3.5); Potassium 4.3 mEq/L (3.5-5.1); Total Protein 5.6 g/dL (6.4-8.9)
[2019-05-13] MEDS ORDERED: *HR* FentaNYL (PF) 100 MCG/2 ML VIAL IVP ONE (20:09)
[2019-05-13] MEDS ORDERED: Hydrocortisone Sodium Succ 100 MG/2 ML VIAL IVP ONE (20:10)
[2019-05-13] MEDS: 0.9 % Sodium Chloride 1,000 ML IVC SCH (20:42)
[2019-05-13] MEDS ORDERED: Naloxone 0.4 MG/ML INJ IVP PRN (22:16)
[2019-05-13] MEDS: Apixaban 5 MG TABLET PO SCH (23:12)
[2019-05-14] MEDS: *HR* OxyCODONE Immed Rel 5 MG TABLET PO PRN ×3 (04:00→16:01)
[2019-05-14] MEDS: Ondansetron 4 MG/2 ML VIAL IVP PRN ×2 (04:01→17:32)
[2019-05-14] MEDS: 0.9 % Sodium Chloride 1,000 ML IVC SCH ×3 (05:13→22:05)
[2019-05-14 07:17] LABS: Hematocrit 30.6 % (35.3-44.9); Mean Corpuscular Hemoglobin 33.8 pg (28.0-33.3); Mean Corpuscular Volume 99.4 fL (83.0-100.0); Mean Platelet Volume 10.8 fL (9.4-12.4); Platelet Count 145 K/mcL (140-400); Red Blood Count 3.08 M/mcL (3.82-4.97); Red Cell Distribution Width 19.9 % (11.5-14.5); White Blood Count 8.2 K/mcL (4.3-11.1)
[2019-05-14 07:19] LABS: Hemoglobin 10.4 g/dL (11.5-15.4)
[2019-05-14 07:22] LABS: INR 1.3; Prothrombin Time 15.3 Seconds (9.4-12.1)
[2019-05-14 07:40] LABS: Albumin 2.1 g/dL (3.5-5.7); Albumin/Globulin Ratio 0.8 (1.1-2.2); Bilirubin,Direct 8.4 mg/dL (0.0-0.2); Bilirubin,Total 14.4 mg/dL (0.3-1.0); Calcium 7.4 mg/dL (8.6-10.3); Globulin 2.7 g/dL (2.4-3.5); Magnesium 2.2 mg/dL (1.6-2.6); Phosphorous 3.8 mg/dL (2.7-4.5); Potassium 4.9 mEq/L (3.5-5.1); Total Protein 4.8 g/dL (6.4-8.9)
[2019-05-14] MEDS: Apixaban 5 MG TABLET PO SCH (10:28)
[2019-05-14 19:18] VITALS: BP 106/71
[2019-05-14] MEDS ORDERED: Gabapentin 300 MG CAPSULE PO SCH (21:00)
[2019-05-15] MEDS ORDERED: Spironolactone 25 MG TABLET PO SCH (09:00)
== END 2019-05-14 21:40 | disposition critical access hospital (66) | DRG 436 ==
LOC: 3ANU 13:09 → EMEROOARM 13:09 → 3ANU 21:25 → SUATTDRO 05-14 00:35
PROVIDERS: ADMIT Family Medicine; ATTEND Internal Medicine